=== PATIENT | male | born 1960 | race Caucasian/White ===

== ENCOUNTER → 2021-06-24 02:06 | Outpatient (CLI) | payer BC, SELFPAY ==
[2021-06-24 19:34] LABS: SARS-CoV-2 RNA PCR Negative
== END ==
PROVIDERS: Visit Provider Podiatrist Foot & Ankle Surgery
DX: Z01.812 Encounter for preprocedural laboratory examination (principal); Z20.822 Contact with and (suspected) exposure to COVID-19
CPT/HCPCS: C9803; U0003; U0005

== ENCOUNTER 2021-06-24 08:00 | Outpatient (CLI) | payer BC, SELFPAY ==
--- NOTE | 2021-06-24 08:15 | ECG_ITS ---
Measurements Intervals [place] Rate: 74 P: 40 MN: 187 QRS: -9 QRSD: 74 T: 29 QT: 347 QTc: 387 Interpretive Statements SINUS RHYTHM INCOMPLETE RIGHT BUNDLE BRANCH BLOCK BORDERLINE R WAVE PROGRESSION, ANTERIOR LEADS INFERIOR INFARCT, AGE INDETERMINATE BASELINE ARTIFACT- I, II, AVR ABNORMAL ECG Electronically Signed On 06-24-2021 8:18:58 [employer]PORATE [employer] PREPAR[employer] by Jesus Dupont D.O.
== END 2021-06-24 08:01 | disposition home or self-care (01) ==
LOC: ANHSURGERY 08:05
PROVIDERS: PCP Family Medicine; Visit Provider Podiatrist Foot & Ankle Surgery
DX: I10 Essential (primary) hypertension (principal); Z01.818 Encounter for other preprocedural examination; I45.10 Unspecified right bundle-branch block
CPT/HCPCS: 93005

== ENCOUNTER 2021-06-27 01:54 | Day surgery (SDC) | payer BC, SELFPAY ==
[2021-06-23 12:57] VITALS: BMI 27.1
--- NOTE | 2021-06-23 13:06 | PC.NURSE ---
Report to the Outpatient Waiting Room, entrance under the green pavilion located off [facility], at time __8:30AM on date __06/27/21 . OR Time: __10:30AM . - You and your visitor will be asked a series of questions to screen for COVID 19 for your protection. - A mask is required within the hospital. - Only one visitor is allowed at this time. Patient visitors will be guided where to wait when not with patient. Preoperative COVID Testing Requirements: No COVID Test needed if: (proof is required; if not received patient will have Rapid Test prior to entry) - Patient has received COVID Vaccine at least 14 days prior to procedure date or - Patient has positive COVID test result within last 90 days of surgery date. COVID Test needed if above criteria is not met If not COVID vaccinated a COVID test must be conducted within 72 hours of surgery and patient is asked to isolate self from time of testing until procedure. You will go to the [facility] Testing Site for your COVID testing. The [facility] Testing site is located at the corner of [address] [facility]. COVID TESTING 06/24/21, 7:35AM You will only be called if COVID results are positive and your surgeon may reschedule your elective surgery date. Patients may have clear liquids (water, carbonated beverages, clear teas, apple juice) until 3 hours prior to surgery with a maximum of 20 ounces. - No food from midnight until time of surgery 7:30AM - Infants may have breast milk until 4 hours before surgery, infant formula 6 hours prior to surgery. - Children will be allowed to drink immediately following surgery. If applicable, please bring a bottle or sippy cup to assist with drinking. Juice, water, soda, and popsicles are readily available. For infants on formula, please bring formula the day of surgery. Pacifiers are allowed. Take the following medications with a SIP of water the morning of surgery: NONE Medications to discontinue per physician NONE Date to take last dose Please no make-up, nail french, hairspray, perfume, deodorant, or body powder the day of surgery. No jewelry (including any body piercings) or valuables the day of surgery, leave them at home. Please take a shower or bath the night before, or the morning of, surgery with an antibacterial soap. Wear comfortable, loose fitting clothing. Children are encouraged to wear pajamas. - Jewelry must be removed prior to entering the operating room. Rings and piercings that are not removed may be cut off. - The hospital will not accept responsibility for valuables. - Please leave all valuables, including medications, at home the day of surgery. If you are going home after surgery, a licensed garbage collector driver must drive you home. - NO public transportation without another adult. - We recommend that an adult stay with you for 24 hours following discharge. - We also recommend that you do not drive, make important decision, drink alcoholic beverages, or take any drugs that were not prescribed by your health care provider for at least 24 hours after your discharge time. For Pediatric surgeries, we recommend two adults accompany the child home (only one inside the building at this time). Follow any additional instructions given to you from your surgeon. Telephone instructions given to ___PATIENT'S WIFE and asked if any additional questions and then verbalized understanding. Patient advised to call surgeon office or pre surgery nurse liaison [phone] if any additional questions.
--- NOTE | 2021-06-26 14:44 | WPDANESEPPF ---
Anes - Initial Pre Proc Eval Procedure: Operation Date: 06/27/21 10:30 Proposed Procedures p Arthrodesis of First Metatarsalphalangeal Joint Right Foot, Stabilization of First Ray Right Foot, Sally Second Metatarsal Osteotomy Right Foot - Zbigniew Kumar JR, MD s Hammertoe Repair Second Digit Right Foot - Zbigniew Kumar JR, MD Date/Time: 06/26/21 14:44 Surgeon: Zbigniew Kumar JR, MD Pre Op Diagnosis: Bunion Rt Foot, 1st Ray Instability Right Patient Data Age: 61 Gender: M Height: 1.83 m Weight: 91 kg Allergies Allergy/AdvReac Type Severity Reaction Status Date / Time No Known Allergies Allergy Verified 06/23/21 12:54 Home Medications Medication Instructions Recorded Confirmed Type lisinopril 20 mg PO QAM 06/23/21 06/27/21 History Patient hx anesthesia problems: none Family hx anesthesia problems: none Results Review: All pre-operative results and documents have been reviewed as part of the pre-operative evaluation. [facility] Past Medical History Medical History (Updated 06/26/21 @ 14:45 by Nicolás Hayden MD) HTN (hypertension) Overweight (BMI 25.0-29.9) Social History Social History Smoking status: Never smoker Alcohol intake: current Drinks per week: 1 Substance use: never Living arrangements: with family Additional living arrangements comments: Spiritual care concerns: No Anes - Eval Final PreProcedure Day of Procedure 06/26/21 14:44 Patient weight: overweight Heart: regular rate and rhythm Lungs: clear to auscultation and normal air movement Airway: Mallampati scale class II Neurological: alert and oriented Last oral intake: >/= 8 hours ASA classification: II Emergent: no Anesthetic plan: proceed Anesthesia type and monitoring: general GIVS and LMA Results Review: All pre-operative results and documents have been reviewed as part of the pre-operative evaluation. Informed Consent: The patient's anesthetic plan and its attendant risks and benefits were discussed with the patient/family/POA. Questions were solicited and answers provided to the satisfaction of the patient/family/POA.
[2021-06-27] VITALS (13 sets, daily range): BP systolic 103–145; BP diastolic 55–78; PULSE 71–88; RESP 10–20; TEMP 36.3; O2SAT 92–99
--- NOTE | ~2021-06-27 | XR_ITS ---
EXAMINATION: XR surgery orthopedic EXAM DATE: 06/27/2021 12:19 INDICATION: Arthrodesis. Right foot surgery. TECHNIQUE: Fluoroscopy used during right 1st, 2nd digit arthrodesis performed by Dr. Zbigniew ortiz JR MD. Radiologist was not present for the imaging or procedure. Total fluoroscopic time of 24 s econds. The DAP for this procedure was 2.3 cGycm2. A total of 4 images sent to PACS from the exam. There is no prior study for comparison. FINDINGS: Frontal and lateral projections demonstrate orthopedic hardware in the 1st and 2nd digits, bridging the 1st metatarsophalangeal and 1st/2nd metatarsal bases. Fixation device extending down th e length of the 2nd digit to the metatarsal neck. Correlate with procedure note. IMPRESSION: Fluoroscopy used during right 1st, 2nd digit arthrodesis. Reviewed, dictated and finalized at location B. E FIGHTER
--- NOTE | 2021-06-27 07:20 | WPDHPUPDATE1 ---
History and Physical Update Update Date/Time: 06/27/21 07:20 History and Physical has been reviewed, including an updated exam of the patient. There are NO changes in the patient's condition. Risks, benefits, and alternatives have been discussed and questions answered. Patient agrees to proceed with procedure.
[2021-06-27] MEDS: LACTATED RINGERS 1,000 ML 30 ML IV CONT ×2 (09:30→14:00)
[2021-06-27] MEDS: ceFAZolin 2 GM/D5W 50 ML 2 GM/50 ML BAG IVPB (10:29)
[2021-06-27] MEDS: LIDOCAINE HCL 2% PF INJ 5 ML VIAL 10 ML INFILTRATE (10:57)
[2021-06-27] MEDS: fentaNYL CITRATE INJ (*CRX) 100 MCG/2 ML VIAL 25 MCG IV PUSH ×8 (12:54→13:57)
--- NOTE | 2021-06-27 13:28 | W.PM.PROC2 ---
Procedure Note - Detailed Date of Procedure 06/27/21 Pre-op Diagnosis 1. Recurrent bunion deformity right foot 2. First ray instability right foot 3. Metatarsalgia sub second metatarsal head right foot 4. Hammertoe 2nd digit right foot Post-op Diagnosis same Procedure Performed 1. Arthrodesis of the first metatarsal phalangeal joint right foot 2. Stabilization of the first ray right foot with internal fixation 3. Sally shortening second metatarsal osteotomy right foot 4. Hammertoe repair 2nd digit right foot Surgeon Zbigniew Kumar JR, HO[place] Anesthesia general and local Indications Painful right forefoot Description of Procedure PROCEDURE IN DETAIL: Under mild sedation, the patient was brought into the operating room, placed on the operating table in supine position. A pneumatic ankle tourniquet was placed about the patient's ipsilateral ankle. Following general LMA, a local anesthetic block was obtained about the right foot and ankle utilizing 20 cc of 2% Lidocaine plain and 0.5% Marcaine plain. The foot was then scrubbed, prepped, and draped in the usual aseptic manner. An Esmarch bandage was then used to exsanguinate the patient's foot and the pneumatic ankle tourniquet was then inflated. Surgery began in the following manner: Attention was directed to the dorsal aspect of the 1st metatarsophalangeal joint where there was a large osseous medial eminence noted along the dorsomedial aspect of the joint. The incision was made starting along the central shaft of the 1st metatarsal and extending just proximal to the interphalangeal joint of the hallux. The incision was continued deep down through the subcutaneous tissues using sharp and blunt dissection. All bleeders were cauterized as necessary. At this point, the dissection was continued down to the level of the periosteum and capsular structures overlying the 1st metatarsophalangeal joint. A full length periosteum and capsular incision was made just medial to the extensor hallucis longus tendon. The periosteum and capsular structures were freed from the base of the proximal phalanx as well as the distal 1st metatarsal. At this point, the 1st metatarsophalangeal joint was identified. There was partial loss of articular cartilage to the head of the 1st metatarsal as well as the base of the proximal phalanx. There was significant broadening and hypertrophy of the 1st metatarsophalangeal joint. Utilizing a sagittal bone saw, the hypertrophied 1st metatarsal was resected dorsally, medially, and laterally. A power bur was used to make sure that there were no rough edges and also to further debride the hypertrophic 1st metatarsal. Next, a rongeur was used to resect all hypertrophic base of the proximal phalanx. At this point, the reamer system for the Opsmatic system was used to denude the degenerative cartilage from the head of the 1st metatarsal as well as the base of the proximal phalanx. The cartilage and subchondral bone were fully debrided utilizing the reamer system until healthy bleeding bone was noted. Next, a 2-0 drill bit was used to further fenestrate the head of the 1st metatarsal as well as the base of the proximal phalanx in order to allow fusion across the 1st metatarsophalangeal joint. Next, a 0.045 inch K-wire was driven from the medial aspect of the base of the proximal phalanx into the head of the 1st metatarsal in order to serve as temporary fixation. A large steel plate was used to make sure that the hallux was in a rectus position both in the sagittal plane as well as the frontal and transverse plane. Excellent position of the hallux was noted. Next, a CrossCHECK plate was placed atop the 1st metatarsophalangeal joint held in position with Delmont wires. Utilizing standard principles and techniques, the 2 distal drill holes were drilled and two 3.5 mm mm fully-threaded locking screws were driven from dorsal to plantar holding the distal aspect of the
[2021-06-27] MEDS: HYDROmorphone HCL INJ (*CRX) 1 MG/ML SYR 0.25 MG IV PUSH ×6 (14:00→14:49)
[2021-06-27] MEDS: oxyCODONE HCL (*CRX) 5 MG TAB IR PO (15:25)
== END 2021-06-27 16:14 | disposition home or self-care (01) ==
PROVIDERS: PCP Family Medicine; Visit Provider Podiatrist Foot & Ankle Surgery
PROC: (CPT 28750; principal; 2021-06-27 10:30)
PROC: (CPT 28285; 2021-06-27 10:30)
DX: M21.611 Bunion of right foot (principal); M25.374 Other instability, right foot; M77.41 Metatarsalgia, right foot; M20.41 Other hammer toe(s) (acquired), right foot; I10 Essential (primary) hypertension
CPT/HCPCS: 28285; 28308; 28750; 28615; A9270; C1713; C1776; J0690; J1100; J1170; J1885; J2250; J2405; J2704; J3010; J7120

== ENCOUNTER 2021-08-05 14:46 | Outpatient (CLI) | payer BC, SELFPAY ==
--- NOTE | ~2021-08-05 | XR_ITS ---
EXAMINATION: XR wrist LT min 3V DATE: 08/05/2021 15:12 INDICATION: Osteoarthritis TECHNIQUE: Posteroanterior, ulnar deviation, oblique, and lateral views of the left wrist were obtain ed. COMPARISON: none FINDINGS: Alignment is normal. No fracture. Mild chondrocalcinosis in the region of the triangular fibrocartila ge complex. Severe osteoarthritis at the radioscaphoid articulation of the wrist joint. Mild osteoart hritis at the midcarpal, triscaphe and first carpal metacarpal joints. Tiny metallic foreign body in the soft tissues near the skin surface dorsal to the base of the second metacarpal. IMPRESSION: 1. 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 Reviewed, dictated and finalized at location A. HIATRIC TECHNICIAN ASSISTANT IMPRESSION: 1. 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
== END 2021-08-05 14:47 | disposition home or self-care (01) ==
PROVIDERS: Visit Provider Plastic Surgery
DX: M19.031 Primary osteoarthritis, right wrist (principal)
CPT/HCPCS: 73110

== ENCOUNTER → 2021-09-15 00:45 | Outpatient (CLI) | payer BC, SELFPAY ==
[2021-09-15 12:50] LABS: SARS-CoV-2 RNA PCR Negative
== END ==
PROVIDERS: Visit Provider Plastic Surgery
DX: Z01.812 Encounter for preprocedural laboratory examination (principal); Z20.822 Contact with and (suspected) exposure to COVID-19
CPT/HCPCS: C9803; U0003; U0005

== ENCOUNTER 2021-09-18 00:03 | Day surgery (SDC) | payer BC, SELFPAY ==
[2021-09-15 14:12] VITALS: BMI 26.9
--- NOTE | 2021-09-15 14:18 | PC.NURSE ---
Report to the Outpatient Waiting Room, entrance under the green pavilion located off [facility], at time __0600 ____ on date __09/18/21 . OR Time: . - You will be asked a series of questions to screen for COVID 19 for your protection. - A mask is required within the hospital. - No visitors are allowed at this time. Preoperative COVID Testing Requirements: No COVID Test needed if: (proof is required; if not received patient will have Rapid Test prior to entry) - Patient has received COVID Vaccine at least 14 days prior to procedure date or - Patient has positive COVID test result within last 90 days of surgery date. COVID Test needed if above criteria is not met If not COVID vaccinated a COVID test must be conducted within 72 hours of surgery and patient is asked to isolate self from time of testing until procedure. You will go to the [facility] Testing [facility] for your COVID testing. The [facility] is located at the corner of [address] from [facility]. You will only be called if COVID results are positive and your surgeon may reschedule your elective surgery date. Patients may have clear liquids (water, carbonated beverages, clear teas, apple juice) until 3 hours prior to surgery with a maximum of 20 ounces. - No food from midnight until time of surgery - Infants may have breast milk until 4 hours before surgery, infant formula 6 hours prior to surgery. - Children will be allowed to drink immediately following surgery. If applicable, please bring a bottle or sippy cup to assist with drinking. Juice, water, soda, and popsicles are readily available. For infants on formula, please bring formula the day of surgery. Pacifiers are allowed. Take the following medications with a SIP of water the morning of surgery: __NONE Medications to discontinue per physician NONE Date to take last dose NONE Please no make-up, nail luxembourgish, hairspray, perfume, deodorant, or body powder the day of surgery. No jewelry (including any body piercings) or valuables the day of surgery, leave them at home. Please take a shower or bath the night before, or the morning of, surgery with an antibacterial soap. Wear comfortable, loose fitting clothing. Children are encouraged to wear pajamas. - Jewelry must be removed prior to entering the operating room. Rings and piercings that are not removed may be cut off. - The hospital will not accept responsibility for valuables. - Please leave all valuables, including medications, at home the day of surgery. If you are going home after surgery, a licensed local company truck driver must drive you home. - NO public transportation without another adult. - We recommend that an adult stay with you for 24 hours following discharge. - We also recommend that you do not drive, make important decision, drink alcoholic beverages, or take any drugs that were not prescribed by your health care provider for at least 24 hours after your discharge time. For Pediatric surgeries, we recommend two adults accompany the child home (only one inside the building at this time). Follow any additional instructions given to you from your surgeon. Telephone instructions given to ___WIFE and asked if any additional questions and then verbalized understanding. Patient advised to call surgeon office or pre surgery nurse liaison [phone] if any additional questions.
[2021-09-18 06:25] VITALS: BP 124/83; PULSE 77; RESP 18; TEMP 36.6; O2SAT 100; BMI 26.4
[2021-09-18] MEDS: LACTATED RINGERS 1,000 ML 30 ML IV CONT (06:37)
--- NOTE | 2021-09-18 06:44 | WPDANESEPPF ---
Anes - Initial Pre Proc Eval Procedure: Operation Date: 09/18/21 07:30 Proposed Procedures p Right Ulnar Nerve Neuroplasty at the Elbow - Jose Denis MD Date/Time: 09/18/21 06:44 Surgeon: Jose Denis MD Pre Op Diagnosis: Right Cubital Tunnel Syndrome Patient Data Age: 61 Gender: M Height: 1.83 m Weight: 88.5 kg Last Vital Signs Temp 36.6 C 09/18/21 06:25 Pulse 77 09/18/21 06:25 Resp 18 09/18/21 06:25 BP 124/83 09/18/21 06:25 Pulse Ox 100 09/18/21 06:25 Allergies Allergy/AdvReac Type Severity Reaction Status Date / Time No Known Allergies Allergy Verified 09/18/21 06:11 Home Medications Medication Instructions Recorded Confirmed Type lisinopril 20 mg PO QAM 06/23/21 09/18/21 History diclofenac sodium 75 mg PO BID 09/15/21 09/18/21 History Patient hx anesthesia problems: none Family hx anesthesia problems: none Results Review: All pre-operative results and documents have been reviewed as part of the pre-operative evaluation. [facility] Past Medical History Medical History (Updated 06/26/21 @ 14:45 by Nicolás Hayden MD) HTN (hypertension) Overweight (BMI 25.0-29.9) Social History Social History Smoking status: Never smoker Alcohol intake: current Drinks per week: 1 Substance use: never Living arrangements: with family Additional living arrangements comments: Spiritual care concerns: No Anes - Eval Final PreProcedure Day of Procedure 09/18/21 06:44 Patient weight: overweight Heart: regular rate and rhythm Lungs: clear to auscultation and normal air movement Airway: Mallampati scale class II Neurological: alert and oriented Last oral intake: >/= 8 hours ASA classification: II Emergent: no Anesthetic plan: proceed Anesthesia type and monitoring: general GIVS and standard monitoring Results Review: All pre-operative results and documents have been reviewed as part of the pre-operative evaluation. Informed Consent: The patient's anesthetic plan and its attendant risks and benefits were discussed with the patient/family/POA. Questions were solicited and answers provided to the satisfaction of the patient/family/POA.
--- NOTE | 2021-09-18 07:09 | WPDHPUPDATE1 ---
History and Physical Update Update Date/Time: 09/18/21 07:09 History and Physical has been reviewed, including an updated exam of the patient. There are NO changes in the patient's condition. Risks, benefits, and alternatives have been discussed and questions answered. Patient agrees to proceed with procedure.
[2021-09-18] MEDS: BACITRACIN ZINC OINTMENT 0.9 GRAM PACKET 1 PACKET TOPICAL (07:47)
[2021-09-18 08:11] VITALS: BP 94/65; PULSE 79; RESP 16; O2SAT 96
--- NOTE | 2021-09-18 08:17 | P.OP_ITS ---
Procedure Note - Detailed Date of Procedure 09/18/21 Pre-op Diagnosis Right Cubital Tunnel Syndrome Post-op Diagnosis same Procedure Performed Right ulnar neuroplasty at the elbow Surgeon Jose Denis MD Manager Of Sales [place] [facility] Description of Procedure The area of the cubital tunnel was marked on patient in the holding area he agreed to that. He was taken to the operating room placed supine on the operating table. Time-out was held and confirmed. He was given IV sedation and eventually and LMA was placed. The right upper extremity was prepped and draped in usual fashion. The site was remarked and locally infiltrated with 1% lidocaine with epinephrine. The extremity was exsanguinated with an Lane wrap and the tourniquet inflated to 250 mmHg. The elbow was flexed and supported on folded towels. The incision was made as marked and carried through the subcutaneous tissue to the deep fascia. The ulnar nerve was identified proximally and carefully unroofed exposing it. Proximally there was no constrictive bands. More distally the overlying fascial structures were incised throughout the length of the exposed nerve including the area of Galeano's ligament. A lipoma was identified lying over the nerve and contained with in some deep fascia. It is possible that contributed to some of the compression on this nerve. Most of that tissue was removed. It was approximately 1.5 x 5 mm x 5 mm. The lysis was continued beyond the fascia of the ulnar flexors. The nerve remained well seated in its groove. There was no subluxation. Few bleeding points were electrocoagulated. The wound was closed with intradermal 3-0 Monocryl and cross hatching massey. The skin was then closed with a running intradermal 3-0 Monocryl. The usual bulky bandage with Lane wrap was applied the patient is discharged from the operating room stable condition. He be discharged with instructions in care follow-up and a prescription sent to his pharmacy for hydrocodone 7. Estimated Blood Loss 0 Drains No Packing No Pathology none sent Complications No immediate complications Condition stable Disposition same day
[2021-09-18 08:41] VITALS: BP 106/71; PULSE 71; RESP 16; O2SAT 97
[2021-09-18 09:11] VITALS: BP 107/73; PULSE 60; RESP 16; O2SAT 100
[2021-09-18 09:20] VITALS: BP 109/72; PULSE 62; RESP 16; O2SAT 100
== END 2021-09-18 09:30 | disposition home or self-care (01) ==
PROVIDERS: Visit Provider Plastic Surgery
PROC: (CPT 64718; principal; 2021-09-18 07:30)
DX: G56.21 Lesion of ulnar nerve, right upper limb (principal); D17.22 Benign lipomatous neoplasm of skin and subcutaneous tissue of left arm
CPT/HCPCS: 64718; A9270; J2250; J2704; J7120

== ENCOUNTER → 2021-10-20 00:37 | Outpatient (CLI) | payer BC, SELFPAY ==
[2021-10-20 11:18] LABS: SARS-CoV-2 RNA PCR Negative
== END ==
PROVIDERS: Visit Provider Plastic Surgery
DX: Z01.812 Encounter for preprocedural laboratory examination (principal); Z20.822 Contact with and (suspected) exposure to COVID-19
CPT/HCPCS: C9803; U0003; U0005

== ENCOUNTER 2021-10-23 02:19 | Day surgery (SDC) | payer BC, SELFPAY ==
[2021-10-20 08:39] VITALS: BMI 26.4
--- NOTE | 2021-10-20 08:44 | PC.NURSE ---
Report to the Outpatient Waiting Room, entrance under the green pavilion located off [facility], at time 0730 on date 10/23/21. OR Time: 0930. - You and your visitor will be asked a series of questions to screen for COVID 19 for your protection. - A mask is required within the hospital. One visitor will be allowed to accompany the patient into the hospital. Patients visitor will be instructed to remain with patient at all times or leave the building. We will allow the visitor to come back to the postoperative area when patient is ready. Preoperative COVID Testing Requirements: COVID TEST 10/20 AT 0900 No COVID Test needed if: (proof is required; if not received patient will have Rapid Test prior to entry) - Patient has received COVID Vaccine at least 14 days prior to procedure date or - Patient has positive COVID test result within last 90 days of surgery date. COVID Test needed if above criteria is not met If not COVID vaccinated a COVID test must be conducted within 72 hours of surgery and patient is asked to isolate self from time of testing until procedure. You will go to the [facility] for your COVID testing. The [facility] Testing site is located at the corner of [address] from [facility]. You will only be called if COVID results are positive and your surgeon may reschedule your elective surgery date. Patients may have clear liquids (water, carbonated beverages, clear teas, apple juice) until 3 hours prior to surgery with a maximum of 20 ounces. - No food from midnight until time of surgery Take the following medications with a SIP of water the morning of surgery: NONE Medications to discontinue per physician: N/A Date to take last dose: N/A Please no make-up, nail bulgarian, hairspray, perfume, deodorant, or body powder the day of surgery. No jewelry (including any body piercings) or valuables the day of surgery, leave them at home. Please take a shower or bath the night before, or the morning of, surgery with an antibacterial soap. Wear comfortable, loose fitting clothing. - Jewelry must be removed prior to entering the operating room. Rings and piercings that are not removed may be cut off. - The hospital will not accept responsibility for valuables. - Please leave all valuables, including medications, at home the day of surgery. If you are going home after surgery, a licensed driver's license reviewing officer must drive you home. - NO public transportation without another adult. - We recommend that an adult stay with you for 24 hours following discharge. - We also recommend that you do not drive, make important decision, drink alcoholic beverages, or take any drugs that were not prescribed by your health care provider for at least 24 hours after your discharge time. Follow any additional instructions given to you from your surgeon. Telephone instructions given to PT AND SPOUSE and asked if any additional questions and then verbalized understanding. Patient advised to call surgeon office or pre surgery nurse liaison [phone] if any additional questions.
--- NOTE | 2021-10-22 10:19 | P.PNAN_ITS ---
Anes - Initial Pre Proc Eval Procedure: Operation Date: 10/23/21 09:30 Proposed Procedures p Left Ulnar Neuroplasty of the Elbow - Jose Denis MD Date/Time: 10/22/21 10:19 Surgeon: Jose Denis MD Pre Op Diagnosis: left cubital tunnel syndrome Patient Data Age: 61 Gender: M Height: 1.83 m Weight: 88.5 kg Allergies Allergy/AdvReac Type Severity Reaction Status Date / Time No Known Allergies Allergy Verified 10/20/21 08:32 Home Medications Medication Instructions Recorded Confirmed Type lisinopril 20 mg PO QAM 06/23/21 10/20/21 History Patient hx anesthesia problems: none Family hx anesthesia problems: none Results Review: All pre-operative results and documents have been reviewed as part of the pre-operative evaluation. [facility] Past Medical History Medical History (Updated 06/26/21 @ 14:45 by Nicolás Hayden MD) HTN (hypertension) Overweight (BMI 25.0-29.9) Surgical History Surgical History (Updated 10/22/21 @ 10:20 by Case Castellano DO) S/P lumbar fusion Social History Social History Smoking status: Never smoker Alcohol intake: current Drinks per week: 1 Substance use: never Substance use type: does not use Living arrangements: with family Additional living arrangements comments: Spiritual care concerns: No Anes - Eval Final PreProcedure Day of Procedure 10/22/21 10:19 Patient weight: overweight Heart: regular rate and rhythm Lungs: clear to auscultation and normal air movement Airway: Mallampati scale class II Neurological: alert and oriented Last oral intake: >/= 8 hours ASA classification: II Emergent: no Anesthetic plan: proceed Anesthesia type and monitoring: general GIVS and standard monitoring Results Review: All pre-operative results and documents have been reviewed as part of the pre-operative evaluation. Informed Consent: The patient's anesthetic plan and its attendant risks and benefits were discussed with the patient/family/POA. Questions were solicited and answers provided to the satisfaction of the patient/family/POA.
--- NOTE | 2021-10-23 07:21 | WPDHPUPDATE1 ---
History and Physical Update Update Date/Time: 10/23/21 07:21 History and Physical has been reviewed, including an updated exam of the patient. There are NO changes in the patient's condition. Risks, benefits, and alternatives have been discussed and questions answered. Patient agrees to proceed with procedure.
[2021-10-23 08:00] VITALS: BP 127/89; PULSE 74; RESP 18; TEMP 36.5; O2SAT 100
[2021-10-23] MEDS: LACTATED RINGERS 1,000 ML 30 ML IV CONT ×2 (08:15→09:55)
[2021-10-23 09:55] VITALS: BP 93/52; PULSE 63; RESP 14; O2SAT 97
--- NOTE | 2021-10-23 10:12 | P.OP_ITS ---
Procedure Note - Detailed Date of Procedure 10/23/21 Pre-op Diagnosis left cubital tunnel syndrome Post-op Diagnosis Same Procedure Performed Left ulnar neuroplasty at the elbow Surgeon Jose Denis MD Computational Sciences Professor Anne Description of Procedure The skin over the left cubital tunnel was marked on the patient's arm in the holding area. He she was then taken to the operating room where he was placed supine on the operating table. A time-out was held and confirmed. The patient was given IV sedation and the left upper extremity prepped and draped in usual fashion the the site was remarked for the incision and locally infiltrated with 1% lidocaine with epinephrine. The extremity was exsanguinated the tourniquet inflated 250 mmHg. The elbow was flexed and supported on folded towels. The incision was made as marked and dissection was carried through the subcutaneous tissue to the deep fascia. The ulnar nerve was identified proximal to the medial epicondyle. It was relieved of its fascia in that region and explore proximally where there were no signs of compression or constriction. Distally the deeper thick fascia was divided with scissors past Galeano ligament. There was thick robust triceps muscle Harsh posterior to the course of the nerve that did not seem to impede function. The flexor carpi ulnaris fascia was incised a couple of cm. The nerve did not sublux. Bleeding points were electrocoagulated and the wound was closed with intradermal 3-0 Monocryl at multiple sites and the skin closed with glue. A dry gauze bandage was applied released and is discharged from the operating room in stable condition. He has a prescription for hydrocodone 5/325 number 7 Estimated Blood Loss 2 Tourniquet Time 18 Drains No Packing No Pathology None sent Complications No immediate complications Condition Stable Disposition Same day
[2021-10-23 10:20] VITALS: BP 109/67; PULSE 64; RESP 14
[2021-10-23 10:45] VITALS: BP 114/79; PULSE 58; RESP 14
== END 2021-10-23 11:02 | disposition home or self-care (01) ==
PROVIDERS: Visit Provider Plastic Surgery
PROC: (CPT 64718; principal; 2021-10-23 09:30)
DX: G56.22 Lesion of ulnar nerve, left upper limb (principal); I10 Essential (primary) hypertension; Z98.1 Arthrodesis status
CPT/HCPCS: 64718; A9270; J2250; J2704; J3010; J7120

== ENCOUNTER 2021-11-12 14:18 | Outpatient (CLI) | payer BC, SELFPAY ==
--- NOTE | ~2021-11-12 | XR_ITS ---
EXAM: XR hand RT min 3V HISTORY: OA,pain/swelling posterior hand, 2-4 MCP jointsX2 yrs.no inj COMPARISON: None available FINDINGS: Normal mineralization. Joint space narrowing and osteophytosis, moderate at the third MCP and mild at the first and second MCP joints. Remaining joint spaces are maintained. No fracture or di slocation. No abnormal soft tissue calcifications. 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 Reviewed, dictated and finalized at location K.
== END 2021-11-12 14:19 | disposition home or self-care (01) ==
LOC: ANHIMG 14:23
PROVIDERS: Visit Provider Plastic Surgery
DX: M19.041 Primary osteoarthritis, right hand (principal); M18.11 Unilateral primary osteoarthritis of first carpometacarpal joint, right hand
CPT/HCPCS: 73130

== ENCOUNTER 2021-11-18 09:44 | Outpatient (CLI) | payer BC, SELFPAY ==
--- NOTE | ~2021-11-18 | XR_ITS ---
EXAMINATION: XR md joint inject/asp w image DATE: 11/18/2021 10:45 INDICATION: Left wrist osteoarthritis. TECHNIQUE: A time-out was performed to verify the patient's name, date of , and procedure to b e performed. The procedure including the risks, benefits, and alternatives was discussed with the pat ient. Risks discussed included bleeding and infection. The patient understood the risks and agreed to proceed. The skin overlying the left radioscaphoid joint was prepped and draped in usual sterile fa shion. Anesthetic was administered with 1% lidocaine subcutaneously. A 23 G needle was advanced und er fluoroscopic guidance into the joint. Subsequently, injectate consisting of 1 mL 6 mg/mL betameth asone, 0.5 mL 1% lidocaine, and 0.5 mL Omnipaque 240 was instilled. The needle was removed and the e ntry site was cleaned and dressed. There were no immediate complications. Fluoroscopy exposure time was 0.1 minutes. The total number of images was 2. FINDINGS: Real-time fluoroscopy demonstrates the needle in the left radioscaphoid joint. Patient's pa in prior to procedure:5/10. Patient's pain following the procedure: 0/10. IMPRESSION: 1. Fluoroscopy guided left radioscaphoid joint injection of local anesthetic and steroid with decreas e in the patient's presenting pain. Reviewed, dictated and finalized at location A. IMPRESSION: 1. Fluoroscopy guided left radioscaphoid joint injection of local anesthetic an d steroid with decrease in the patient's presenting pain.
== END 2021-11-18 09:45 | disposition home or self-care (01) ==
PROVIDERS: Visit Provider Plastic Surgery
DX: M25.542 Pain in joints of left hand (principal)
CPT/HCPCS: 20605; 77002; J0702; Q9966

== ENCOUNTER 2023-03-10 16:37 | Outpatient (CLI) | payer BC, SELFPAY ==
--- NOTE | ~2023-03-10 | XR_ITS ---
EXAM: XR wrist LT min 3V DATE: 03/10/2023 16:57 HISTORY: RADIOSCAPHOID OSTEOARTHRITIS W PAIN w/o injury . COMPARISON: 08/05/2021. FINDINGS: Normal mineralization. No fracture or dislocation. No lytic or blastic lesion. Scapholunat e widening. Chondrocalcinosis. Degenerative changes at the triscaphe joint and radiocarpal joint. Pro ximal migration of the capitate with narrowing of the capitate lunate articulation. No erosion or per iosteal change. Soft tissues within normal limits. Stable punctate foreign body at the base of the se cond metacarpal. IMPRESSION: Degenerative changes in the wrist, severe at the radiocarpal articulation, with chondroca lcinosis. Possible early changes of SLAC wrist. Reviewed, dictated and finalized at location K. IMPRESSION: Degenerative changes in the wrist, severe at the radiocarpal articu lation, with chondrocalcinosis. Possible early changes of SLAC wrist.
== END 2023-03-10 16:38 | disposition home or self-care (01) ==
LOC: ANHIMG 16:42
PROVIDERS: Visit Provider Plastic Surgery
DX: M19.032 Primary osteoarthritis, left wrist (principal); M11.232 Other chondrocalcinosis, left wrist
CPT/HCPCS: 73110

== ENCOUNTER 2023-06-20 12:36 | Outpatient (CLI) | payer BC, SELFPAY ==
--- NOTE | ~2023-06-20 | XR_ITS ---
EXAMINATION: 1. XR hand LT min 3V 2. XR wrist LT min 3V DATE: 06/20/2023 13:28 INDICATION: Arthralgia. TECHNIQUE: 3 views of left hand and 4 views of left wrist were obtained. COMPARISON: Left wrist radiograph 01/08/2023 FINDINGS: LEFT WRIST: Bone alignment is normal. No fracture. There is severe osteoarthritis of radioscaphoid xiang int with bone volume loss of scaphoid. There is moderate osteoarthritis of lunate-capitate joint. The re is mild osteoarthritis of triscaphe joint and first carpometacarpal joint. LEFT HAND: Bone alignment is normal. No fracture. There is mild osteoarthritis of second and third me tacarpophalangeal joints, first interphalangeal joint, third and fifth proximal interphalangeal joint s, and second distal interphalangeal joint. IMPRESSION: 1. Polyarticular osteoarthritis. Reviewed, dictated and finalized at location A. ATIONAL THERAPY TEACHER IMPRESSION: 1. Polyarticular osteoarthritis.
--- NOTE | ~2023-06-20 | XR_ITS ---
EXAMINATION: XR knee RT 3V DATE: 06/20/2023 13:28 INDICATION: Arthralgia. TECHNIQUE: 3 views of right knee were obtained. COMPARISON: None. FINDINGS: Bone alignment is normal. No fracture. There is mild osteoarthritis of medial and patellofe moral compartments. There is chondrocalcinosis of the menisci. No knee joint effusion. IMPRESSION: 1. Mild right knee osteoarthritis. Reviewed, dictated and finalized at location A. T METAL FOREMAN
--- NOTE | ~2023-06-20 | XR_ITS ---
EXAMINATION: 1. XR hand RT min 3V 2. XR wrist RT min 3V DATE: 06/20/2023 13:28 INDICATION: Arthralgia. TECHNIQUE: 3 views of right hand and 4 views of right breast were obtained. COMPARISON: Right hand radiographs 11/12/2021 FINDINGS: RIGHT WRIST: Bone alignment is normal. No fracture. There is mild osteoarthritis of first carpometaca rpal joint. RIGHT HAND: Bone alignment is normal. No fracture. There is mild osteoarthritis of first metacarpopha langeal joint and moderate osteoarthritis of second and third metacarpophalangeal joints. There is mi ld osteoarthritis of first interphalangeal joint, third and fifth proximal interphalangeal joints, an d second and third distal interphalangeal joints. IMPRESSION: 1. Polyarticular osteoarthritis. Reviewed, dictated and finalized at location A. MACY TECHNOLOGY INSTRUCTOR IMPRESSION: 1. Polyarticular osteoarthritis.
--- NOTE | ~2023-06-20 | XR_ITS ---
EXAMINATION: XR knee LT 3V DATE: 06/20/2023 13:28 INDICATION: Arthralgia. TECHNIQUE: 3 views of left knee were obtained. COMPARISON: None. FINDINGS: Bone alignment is normal. No fracture. There is mild osteoarthritis of medial and patellofe moral compartments. There is chondrocalcinosis of the menisci. No knee joint effusion. IMPRESSION: 1. Mild left knee osteoarthritis. Reviewed, dictated and finalized at location A. LAYER
--- NOTE | ~2023-06-20 | XR_ITS ---
EXAMINATION: XR sacroiliac joints min 3V DATE: 06/20/2023 13:27 INDICATION: Arthralgia. TECHNIQUE: 3 views of the sacrococcygeal joints were obtained. COMPARISON: None. FINDINGS: There is lumbar dextrocurvature. There are changes of posterior fusion procedure from L4 to S1 with pedicle screws. The sacroiliac joints are normal. There is mild osteoarthritis of the hips. IMPRESSION: 1. Normal sacroiliac joints. Reviewed, dictated and finalized at location A.
--- NOTE | ~2023-06-20 | XR_ITS ---
EXAMINATION: XR lumbar spine min 4V DATE: 06/20/2023 13:28 INDICATION: Arthralgia. TECHNIQUE: 5 views of lumbar spine were obtained. COMPARISON: None. FINDINGS: There is 5 degrees dextrocurvature of lumbar spine. There are changes of posterior fusion p rocedure from L4 to S1 with pedicle screws. There is mild chronic anterior wedging of T12 vertebral b edmond. There is mildly decreased disc height at L2-L3, moderately decreased disc height at L4-L5, and s everely decreased disc height at L5-S1. There is multilevel mild facet joint osteoarthritis. IMPRESSION: 1. Mild lumbar spondylosis. 2. Posterior fusion procedure from L4 to S1. Reviewed, dictated and finalized at location A. SH FLAKER
== END 2023-06-20 12:37 | disposition home or self-care (01) ==
LOC: ANHIMG 12:42
DX: M43.06 Spondylolysis, lumbar region (principal); M43.27 Fusion of spine, lumbosacral region; M19.032 Primary osteoarthritis, left wrist; M19.031 Primary osteoarthritis, right wrist; M17.0 Bilateral primary osteoarthritis of knee; M19.042 Primary osteoarthritis, left hand; M19.041 Primary osteoarthritis, right hand
CPT/HCPCS: 72110; 72202; 73110; 73130; 73562

== ENCOUNTER 2024-09-22 02:21 | Day surgery (SDC) | payer BC, SELFPAY ==
[2024-09-20 13:00] VITALS: BMI 28.5
--- NOTE | 2024-09-20 13:04 | PC.NURSE ---
Report to the Outpatient Waiting Room, entrance under the green pavilion located off [facility], at time _0600_ on date _[id number]_. Planned Procedure Time: _0730_.? Time changes happen often and if your time is changed the preop area will call you the afternoon before. - You and your visitor will be asked to self-screen and do not enter if you have any COVID symptoms. Please call surgeon if you need to reschedule. - A mask is optional within the hospital at this time. Patients may have clear liquids (water, carbonated beverages, clear teas, apple juice) until 3 hours prior to surgery with a maximum of 20 ounces. - No food from midnight until time of surgery and no smoking, or chewing tobacco (or any form of nicotine). No chewing gum, candy or mints. Take only the following medications with a SIP of water on the morning of surgery: ____None___ DO NOT STOP ANY OF YOUR OTHER PRESCRIPTION MEDICATIONS PRIOR TO SURGERY EXCEPT THE FOLLOWING Hold all vitamins and supplements for 3 days per anesthesiologist. Medications to discontinue per physician Date to take last dose Please no make-up, nail indonesian, hairspray, perfume, deodorant, or body powder the day of surgery.? No jewelry (including any body piercings) or valuables the day of surgery, leave them at home.? Please take a shower or bath the night before, or the morning of, surgery with an antibacterial soap.? Wear comfortable, loose fitting clothing.? - Jewelry must be removed prior to entering the operating room.? Rings and piercings that are not removed may be cut off. - The hospital will not accept responsibility for valuables.? - Please leave all valuables, including medications, at home the day of surgery. If you are going home after surgery, a licensed cdl truck driver must drive you home.? - NO public transportation without another adult if you receive anesthesia. - We recommend that an adult stay with you for 24 hours following discharge. - We also recommend that you do not drive, make important decision, drink alcoholic beverages, or take any drugs that were not prescribed by your health care provider for at least 24 hours after your discharge time. Follow any additional instructions given to you from your surgeon. Telephone instructions given to __Tawny___and asked if any additional questions and then verbalized understanding. Patient advised to call surgeon office or pre surgery nurse liaison [phone] if any additional questions.
[2024-09-22] VITALS (10 sets, daily range): BP systolic 121–151; BP diastolic 68–93; PULSE 63–80; RESP 12–16; TEMP 36.3–37.1; O2SAT 96–100
--- NOTE | ~2024-09-22 | XR_ITS ---
EXAMINATION: XR surgery orthopedic DATE: 09/22/2024 09:02 INDICATION: Left forefoot surgery TECHNIQUE: 2 images of the left forefoot were obtained during procedure performed by Dr. Kumar. Ra diologist was not present for the imaging or procedure. COMPARISON: None. FINDINGS: Images demonstrate the first metatarsal phalangeal arthrodesis with compression screw and dorsal plat e-screw fixation. Shortening osteotomy at the neck of the second metatarsal which is fixed with a queenie r of screws. Second proximal interphalangeal arthrodesis are probably with fixation device placed ove r maxillary directed wire which extends from the tuft of the distal phalanx to the fixation device at the base of the middle phalanx. Expected small amount of soft tissue gas at the operative beds. Ther e is some secondary widening of the second metatarsophalangeal joint space. Bone alignment appears ot herwise near-anatomic. No fractures. IMPRESSION: 1. Expected appearance post left first metatarsophalangeal and second proximal interphalangeal arthro desis and shortening osteotomy at the neck of the second metatarsal each with internal fixation. Reviewed, dictated and finalized at location A. [employer] IMPRESSION: 1. Expected appearance post left first metatarsophalangeal and second proximal interphalangeal arthrodesis and shortening osteotomy at the neck of the second metatarsal each with internal fixation.
--- OUTSIDE RECORDS SUMMARY | 2024-09-22 02:25 | XMS_ITS | Encounter Summary ---
Author Organization [facility] Address 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
--- OUTSIDE RECORDS SUMMARY | 2024-09-22 02:25 | XMS_ITS | Encounter Summary ---
Author Organization [facility] Address 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
--- OUTSIDE RECORDS SUMMARY | 2024-09-22 02:25 | XMS_ITS | Encounter Summary ---
Author Organization [facility] Address 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
--- OUTSIDE RECORDS SUMMARY | 2024-09-22 02:25 | XMS_ITS | Encounter Summary ---
Author Organization [facility] Address 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
--- OUTSIDE RECORDS SUMMARY | 2024-09-22 02:25 | XMS_ITS | Encounter Summary ---
Author Organization [facility] Address 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
--- OUTSIDE RECORDS SUMMARY | 2024-09-22 02:25 | XMS_ITS | Referral Summary ---
Author Organization [facility] Address [address] [place] [address] Care Team Providers Care Brass Pourer Name Role Phone Mag Kat NP Primary Care Provider [phone] Geovani Hollis MD Unavailable Lolis Yeh MD Unavailable Encounters Date Type Department Care Team Description 09/19/2024 Telephone [facility] Primary Care at [address] [address] Mag Kat NP 08/14/2024 10:00 AM ELECTRICIAN APPRENTICE Telemedicine [facility] [address] [place] [address] Medicine 5th [place] [address] [place] [id number] Lolis Yeh MD Calcium pyrophosphate deposition disease (CPPD) (Primary Dx); Wrist arthritis; High risk medication use from Last 3 Months Allergies No known active allergies Medications ibuprofen 200 mg tab/capIndicati ons:Pain Take 2 tablet/capsule (400 mg total) by mouth as needed for pain 2 tablets Active cyanocobalamin, vitamin B-12, (VITAMIN B-12 ORAL)Indication s:supplement Take 1 tablet by mouth every morning Active multivitamin tabletIndicatio ns:Vitamin Deficiency Prevention Take 1 tablet by mouth every morning Active albuterol HFA (PROVENTIL HFA,VENTOLIN HFA,PROAIR HFA) 90 mcg/actuation inhaler Inhale 2 puffs every 6 (six) hours as needed for shortness of breath 1 each 4 Active Additional Information Patient not taking.Reported on 02/16/2024 gabapentin (NEURONTIN) 100 mg capsule Take 1 capsule (100 mg total) by mouth 3 (three) times a day 90 capsule 1 4 Active losartan (COZAAR) 25 mg tablet TAKE 1 TABLET (25 MG TOTAL) BY MOUTH DAILY. 90 tablet 1 5 Active methotrexate 2.5 mg tabletIndicatio ns:autoimmune disease Take 4 tablets (10 mg total) by mouth once a week for 14 days, THEN 6 tablets (15 mg total) once a week for 14 days, THEN 8 tablets (20 mg total) once a week. 84 tablet 5 11/11/19 25 Active folic acid (FOLVITE) 1 mg tablet Take 1 tablet (1 mg total) by mouth daily 90 tablet 3 5 08/14/19 26 Active Active Problems Problem Noted Date Diagnosed Date Numbness and tingling of both legs 04/17/2024 Shortness of breath 01/26/2024 Assessment & Plan (02/16/2024 9:04 AM CDT): Stress test essentially unremarkable. SOB has slightly improved but pt has not tried prn inhaler. Discussed slight increase of BNP, will get ECHO to be safe given the CHF family hx and his SOB. Assessment & Plan (01/26/2024 10:31 AM CDT): EKG shows possible old anteroseptal infarct, no previous EKG to compare. With patient's symptoms will get stress test. Labs and CXR also ordered. Primary hypertension 07/20/2023 Assessment & Plan (02/16/2024 9:03 AM CDT): BP normal in office, renal function stable. Continuing Losartan 25 mg daily. Assessment & Plan (08/17/2023 2:48 PM ELECTRICIAN APPRENTICE): BP much improved, continuing Losartan 25 mg daily. Awaiting labs, he is getting drawn tomorrow via [facility]. Assessment & Plan (07/20/2023 4:45 PM ELECTRICIAN APPRENTICE): Has been out of medication x 3 months. Will restart with Losartan 25 mg daily. Home BP log. Renal function x 1 month ago stable. Wrist arthritis 04/19/2023 Hallux valgus of left foot 04/04/2019 Overview (04/04/2019): Added automatically from request for surgery [id number] Elevated blood pressure read ing without diagnosis of hypertension 01/26/2018 Sciatica of right side 02/03/2017 Diverticulosis of large intestine without hemorr boaz 08/13/2015 Hyperlipidemia with target LDL less than 100 Overview (07/20/2023): Assessment & Plan (07/20/2023 4:46 PM ELECTRICIAN APPRENTICE): Updated lipid panel ordered. Degeneration of lumbar or lumbosacral interverte bral disc 03/29/2012 Herniated lumbar intervertebral disc 03/29/2012 Chronic low back pain 07/19/2008 Immunizations Name Administration Dates Next Due Influenza, Unspecified 07/20/2023(Deferr ed: Patient Refused),08/09/2022(Deferred: Patient Refused) Social History Tobacco Use Types Packs/Day Years Used Date Smoking Tobacco: Never Passive Smoke Exposure: Past Smokeless Tobacco: Never Alcohol Use Standard Drinks/Week Comments Yes 0 (1 standard drink = 0.6 oz pur e alcohol) AUDIT-C Answer Date Recorded Q1: How often do you have a drink containing alc ohol? 2-4 times a month 07/28/2023 Q2: How many drinks containi ng alcohol do you have on a typical day when you are drinking? 1 or 2 07/28/2023 Q3: How often do you have si x or more drinks on one occasion? Never 07/28/2023 PHQ-2 Answer Date Recorded PHQ-2 Total Score (If total score is 3 or more points, staff should administer the PHQ-9) 0 02/16/2024 Sex and Gender Information Value Date Recorded Sex Assigned at Not on file Legal Sex Male 3:07 AM ELECTRICIAN APPRENTICE Gender Identity Not on file Sexual Orientation Not on file Last Filed Vital Signs Vital Sign Reading Time Taken Comments Blood Pressure 112/76 05/08/2024 2:39 PM CDT Pulse 94 05/08/2024 2:39 PM CDT Temperature 36.9 C (98.5 F) 02/16/2024 8:39 AM CDT Respiratory Rate 18 08/17/2023 2:20 PM ELECTRICIAN APPRENTICE Oxygen Saturation 97% 05/08/2024 2:39 PM CDT Inhaled Oxygen Concentration - - Weight 93.6 kg (206 lb 6.4 oz) 05/08/2024 2:39 P M CDT Height 182.9 cm (6') 05/08/2024 2:39 PM CDT Body Mass Index 27.99 05/08/2024 2:39 PM CDT Plan of Treatment Not on file Procedures Procedure Name Priority Date/Time Associated Diagnosis Comments PSA SCREEN Routine 08/18/2023 7:40 AM ELECTRICIAN APPRENTICE Screening PSA (prostate specific antigen) HEPATITIS C ANTIBODY Routine 06/23/2023 6:13 AM ELECTRICIAN APPRENTICE Arthralgia, unspecified joint COLONOSCOPY Routine 07/08/2015 from Last 3 Months or Most Recently Relevant to Health Maintenance Results * PSA screen (08/18/2023 7:40 AM ELECTRICIAN APPRENTICE) PSA 0.84 < OR = 4.00 ng/mL [facility] Comment: The total PSA value from this assay system is standardized against the WHO standard. The test result will be approximately 20% lower when compared to the equimolar-standardized total PSA ([place]). Comparison of serial PSA results should be interpreted with this fact in mind. This test was performed using the Siemens chemiluminescent method. Values obtained from different assay methods cannot be used interchangeably. PSA levels, regardless of value, should not be interpreted as absolute evidence of the presence or absence of disease. Blood 08/18/2023 7:40 AM ELECTRICIAN APPRENTICE 08/18/2023 7:41 AM ELECTRICIAN APPRENTICE Narrative [facility] - 08/19/2023 2:14 PM ELECTRICIAN APPRENTICE FASTING:YES FASTING: YES us Mag Kat NP LAB BLOOD ORDERABLES Final Resul t [facility] [address] [place] [address] * Hepatitis C antibody Blood (06/23/2023 6:13 AM ELECTRICIAN APPRENTICE) Hep C Ab NON-REACTI VE NON-REACT SCOT [facility] Comment: HCV antibody was non-reactive. There is no laboratory evidence of HCV infection. In most cases, no further action is required. However, if recent HCV exposure is suspected, a test for HCV RNA (test code 24550) is suggested. For additional information please refer to http://education.Pradama/faq/EZH36y1 (This link is being provided for informational/ educational purposes only.) Blood 06/23/2023 6:13 AM ELECTRICIAN APPRENTICE 06/23/2023 6:13 AM ELECTRICIAN APPRENTICE Narrative [facility] - 06/24/2023 1:50 PM ELECTRICIAN APPRENTICE FASTING:YES FASTING: YES Lolis Yeh MD LAB MICROBIOLOGY - [facility] ORDERABLES Final Result LAUR[facility] [address] [place] [address] * Colonoscopy (07/08/2015) Anatomical Region Laterality Modality Other Historical Provider ENDOSCOPY PROCEDURES Kasie l Result from Last 3 Months or Most Recently Relevant to Health Maintenance Insurance [facility] ActiveSec SD ActiveSec [place] Care Teams Brass Pourer Relationship Specialty Start Date End Date Mag Kat NP [address] [address] PCP - General Family Medicine 07/20/23 Geovani Hollis MD [address] [facility] [place] [address] Consulting Physician Plastic Surgery 07/20/23 Lolis Yeh MD [address] [facility] [place] [address] Fellow Rheumatology 07/20/23
--- OUTSIDE RECORDS SUMMARY | 2024-09-22 02:25 | XMS_ITS | Encounter Summary ---
Author Organization [facility] Address 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
--- OUTSIDE RECORDS SUMMARY | 2024-09-22 02:25 | XMS_ITS | Encounter Summary ---
Author Organization [facility] Address [address] [place] [address] Care Team Providers Care Delinquent Tax Collector Assistant Name Role Phone Jonelle Sol MD Primary Care Provider [phone] Encounter Details Date Type Department Care Team (Late st Contact Info) Description 07/18/2002 Outpatient Historical [facility] [address] [place] [address] Everardo Li DO NO ADDRESS ON FILE Social History Tobacco Use Types Packs/Day Years Used Date Smoking Tobacco: Never Assessed Sex and Gender Information Value Date Recorded Sex Assigned at Not on file Legal Sex Male 4:39 AM SOLE TIER Gender Identity Not on file Sexual Orientation Not on file documented as of this encounter Plan of Treatment Not on file documented as of this encounter Visit Diagnoses Not on filedocumented in this encounter Care Teams Delinquent Tax Collector Assistant Relationship Specialty Start Date End Date Jonelle Sol MD PCP - General 07/19/08 documented as of this encounter
--- OUTSIDE RECORDS SUMMARY | 2024-09-22 02:25 | XMS_ITS | Encounter Summary ---
Author Organization [facility] Address 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
--- OUTSIDE RECORDS SUMMARY | 2024-09-22 02:25 | XMS_ITS | Encounter Summary ---
Author Organization [facility] Address 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
--- OUTSIDE RECORDS SUMMARY | 2024-09-22 02:25 | XMS_ITS | Encounter Summary ---
Author Organization [facility] Address 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
--- OUTSIDE RECORDS SUMMARY | 2024-09-22 02:25 | XMS_ITS | Encounter Summary ---
Author Organization [facility] [place] Address 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
--- OUTSIDE RECORDS SUMMARY | 2024-09-22 02:25 | XMS_ITS | Encounter Summary ---
Author Organization [facility] Address 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
--- OUTSIDE RECORDS SUMMARY | 2024-09-22 02:25 | XMS_ITS | Encounter Summary ---
Author Organization [facility] Address [address] [place] [address] Care Team Providers Care Traffic Reporter Name Role Phone Jonelle Sol MD Primary Care Provider Encounter Details Date Type Department Care Team (Late st Contact Info) Description 07/17/2003 Outpatient Historical [facility] [address] [place] [address] Everardo Li DO NO ADDRESS ON FILE Social History Tobacco Use Types Packs/Day Years Used Date Smoking Tobacco: Never Assessed Sex and Gender Information Value Date Recorded Sex Assigned at Not on file Legal Sex Male 4:39 AM DEEP SEA DIVER Gender Identity Not on file Sexual Orientation Not on file documented as of this encounter Plan of Treatment Not on file documented as of this encounter Visit Diagnoses Not on filedocumented in this encounter Care Teams Traffic Reporter Relationship Specialty Start Date End Date Jonelle Sol MD PCP - General 07/19/08 documented as of this encounter
--- OUTSIDE RECORDS SUMMARY | 2024-09-22 02:25 | XMS_ITS | Encounter Summary ---
Author Organization [facility] Address 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
--- OUTSIDE RECORDS SUMMARY | 2024-09-22 02:25 | XMS_ITS | Encounter Summary ---
Author Organization [facility] Address [address] [place] [address] Care Team Providers Care Composite Bond Worker Name Role Phone Jonelle Sol MD Primary Care Provider [phone] Encounter Details Date Type Department Care Team (Late st Contact Info) Description 09/30/2000 Outpatient Historical [facility] [address] [place] [address] Everardo Li DO NO ADDRESS ON FILE Social History Tobacco Use Types Packs/Day Years Used Date Smoking Tobacco: Never Assessed Sex and Gender Information Value Date Recorded Sex Assigned at Not on file Legal Sex Male 4:39 AM RN OPERATING ROOM Gender Identity Not on file Sexual Orientation Not on file documented as of this encounter Plan of Treatment Not on file documented as of this encounter Visit Diagnoses Not on filedocumented in this encounter Care Teams Composite Bond Worker Relationship Specialty Start Date End Date Jonelle Sol MD PCP - General 07/19/08 documented as of this encounter
--- OUTSIDE RECORDS SUMMARY | 2024-09-22 02:25 | XMS_ITS | Encounter Summary ---
Author Organization [email or web address] Address 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
--- OUTSIDE RECORDS SUMMARY | 2024-09-22 02:25 | XMS_ITS | Encounter Summary ---
Author Organization [facility] Address 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
--- OUTSIDE RECORDS SUMMARY | 2024-09-22 02:25 | XMS_ITS | Clinical Summary ---
Author Organization [facility] Address [address] [place] [address] Care Team Providers Care Forensic Chemist Name Role Phone Mag Kat NP Primary Care Provider [phone] Geovani Hollis MD Unavailable Lolis Yeh MD Unavailable [phone] Allergies No known active allergies Medications ibuprofen [...] daily. Assessment & Plan (08/17/2023 2:48 PM PASSENGER VESSEL CHEF): BP much improved, continuing Losartan 25 mg daily. Awaiting labs, he is getting drawn tomorrow via [facility]. Assessment & Plan (07/20/2023 4:45 PM PASSENGER VESSEL CHEF): Has been out of medication x 3 months. Will restart with Losartan 25 mg daily. Home BP log. Renal function x 1 month ago stable. 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 Degeneration of lumbar or lumbosacral interverte bral disc 03/29/2012 Herniated lumbar intervertebral disc 03/29/2012 Chronic low back pain 07/19/2008 Encounters Date Type Department Care Team Description 09/19/2024 Telephone [facility] Primary Care at [address] [address] Mag Kat NP 08/14/2024 10:00 AM PASSENGER VESSEL CHEF Telemedicine [facility] Rheumatology [address] [place] [address] 5th [place] [address] [place] [address] Lolis Yeh MD Calcium pyrophosphate deposition disease (CPPD) (Primary Dx); Wrist arthritis; High risk medication use from Last 3 Months Immunizations Name Administration Dates Next Due Influenza, Unspecified 07/20/2023(Deferr ed: Patient Refused),08/09/2022(Deferred: Patient Refused) Surgical History Surgery Date Site/Laterality Comments BACK SURGERY 08/09/1995 - 08/08/1996 infusion arnaud and screws SHOULDER SURGERY 08/09/1998 - 08/08/1999 Bilateral BACK SURGERY 08/09/1994 - 08/08/1995 ELBOW SURGERY 08/09/2021 - 08/08/2022 Bilateral FOOT SURGERY 08/09/2020 - 08/08/2021 Right hammer toe, bunion, screwed toes together COLONOSCOPY last one 06/2015 Family History Medical History Relation Name Comments Anesthesia problems Neg Hx Social History Tobacco Use Types Packs/Day Years [...] on file Legal Sex Male 3:07 AM PASSENGER VESSEL CHEF Gender Identity Not on file Sexual Orientation Not on file Obstetrics History Last Filed Vital Signs Vital Sign Reading Time Taken Comments Blood Pressure 112/76 05/08/2024 2:39 PM CDT Pulse 94 05/08/2024 2:39 PM CDT Temperature 36.9 C (98.5 F) 02/16/2024 8:39 AM CDT Respiratory Rate 18 08/17/2023 2:20 PM PASSENGER VESSEL CHEF Oxygen Saturation 97% 05/08/2024 2:39 PM CDT Inhaled Oxygen Concentration - - Weight 93.6 kg (206 lb 6.4 oz) 05/08/2024 2:39 P M CDT Height 182.9 cm (6') 05/08/2024 2:39 PM CDT Body Mass Index 27.99 05/08/2024 2:39 PM CDT Plan of Treatment Health Maintenance Due Date Last Done Comments Pneumococcal vaccine <65 (1 of 2 - PCV) 1967 DTaP/Tdap/Td Vaccine (1 - Tdap) 1972 Regular Well Visit/Exam 18-64 1979 Zoster Vaccine (1 of 2) 1980 Influenza Vaccine (#1) 2024 Depression Screening 02/15/2025 02/16/2024, 01/26/2024, 08/17/2023, Additional history exists Colon Cancer Screening-Colonoscopy 07/08/2025 07/08/2015, 07/08/2015 Prostate Cancer Screening-PSA 08/18/2025 08/18/2023 Colon Cancer Screening-CT Colonography Discontinued 07/08/2015 Colon Cancer Screening-DNA Stool Discontinued 07/08/20 Colon Cancer Screening-FIT Discontinued 07/08/2015 Colon Cancer Screening-Sigmoidoscopy Discontinued 07/08/2015 Hepatitis B Screening Completed 06/23/2023 Hepatitis C Screening Completed 06/23/2023 Procedures Procedure Name Priority Date/Time Associated Diagnosis Comments PSA SCREEN Routine 08/18/2023 7:40 AM PASSENGER VESSEL CHEF Screening PSA (prostate specific antigen) HEPATITIS C ANTIBODY Routine 06/23/2023 6:13 AM PASSENGER VESSEL CHEF Arthralgia, unspecified joint COLONOSCOPY Routine 07/08/2015 from Last 3 Months or Most Recently Relevant to Health Maintenance Results * PSA screen (08/18/2023 7:40 AM PASSENGER VESSEL CHEF) PSA 0.84 < OR = 4.00 ng/mL [facility] Comment: The total PSA value from this assay system is standardized against the WHO standard. The test result will be approximately 20% lower when compared to the equimolar-standardized total PSA (Misty Toshia). Comparison of serial PSA results should be interpreted with this fact in mind. This test was performed using the Siemens chemiluminescent method. Values obtained from different assay methods cannot be used interchangeably. PSA levels, regardless of value, should not be interpreted as absolute evidence of the presence or absence of disease. Blood 08/18/2023 7:40 AM PASSENGER VESSEL CHEF 08/18/2023 7:41 AM PASSENGER VESSEL CHEF Narrative [facility] - 08/19/2023 2:14 PM PASSENGER VESSEL CHEF FASTING:YES FASTING: YES Mag Kat NP LAB BLOOD ORDERABLES Final Resul t [facility] [address] [place] [address] * Hepatitis C antibody Blood (06/23/2023 6:13 AM PASSENGER VESSEL CHEF) Hep C Ab NON-REACTI VE NON-REACT SCOT [facility] Comment: HCV antibody was non-reactive. There is no laboratory evidence of HCV infection. In most cases, no further action is required. However, if recent HCV exposure is suspected, a test for HCV RNA (test code 36182) is suggested. For additional information please refer to http://education.roomlinx/faq/NNY95r6 (This link is being provided for informational/ educational purposes only.) Blood 06/23/2023 6:13 AM PASSENGER VESSEL CHEF 06/23/2023 6:13 AM PASSENGER VESSEL CHEF Narrative [facility] - 06/24/2023 1:50 PM PASSENGER VESSEL CHEF FASTING:YES FASTING: YES Lolis Yeh MD LAB MICROBIOLOGY - GE NERAL ORDERABLES Final Result [facility] [id number] [address] [id number] * Colonoscopy (07/08/2015) Anatomical Region Laterality Modality Other us Historical Provider ENDOSCOPY PROCEDURES Kasie l Result from Last 3 Months or Most Recently Relevant to Health Maintenance [place] [facility] Care Teams Forensic Chemist Relationship Specialty Start Date End Date Mag Kat NP [facility] [address] [place] [address] PCP - General Family Medicine 07/20/23 Geovani Hollis MD 1 [facility] [place] [address] Consulting Physician Plastic Surgery 07/20/23 Lolis Yeh MD [address] [facility] [place] [address] Fellow Rheumatology 07/20/23
--- OUTSIDE RECORDS SUMMARY | 2024-09-22 02:25 | XMS_ITS | Clinical Summary ---
Author Organization [facility] Address [address] [place] [address] Care Team Providers Care Adobe Cq Developer Name Role Phone Lisa Patino [facility] Primary Care Provider + Social History Tobacco Use Types Packs/Day Years Used Date Smoking Tobacco: Never Assessed Sex and Gender Information Value Date Recorded Sex Assigned at Not on file Legal Sex Male 6:25 PM CDT Gender Identity Not on file Sexual Orientation Not on file Plan of Treatment Health Maintenance Due Date Last Done Comments Colorectal Cancer Screening Colonoscopy (10 Years) 1961 Annual Physical 1964 PHQ-2 (Physician Haywood) 1973 Hepatitis C 1979 DTaP, Tdap and Td Vaccines ( 1 - Tdap) 1980 Zoster Vaccines (1 of 2) 2011 COVID-19 Vaccine ( - 2023-2 5 season) 2024 Influenza Adult (#1) 2024 PHQ-2 (Physician Clicko) 08/09/2024 RSV Immunization or 60+ Years (1 - 1-dose 75+ series) 2036 Meningococcal B Vaccine Aged Out No l onger eligible based on patient's age to complete this topic Meningococcal Vaccine Aged Out No michelle gisselle eligible based on patient's age to complete this topic Pneumococcal Vaccine: Pediat rics (0 to 5 Years) and At-Risk Patients (6 to 64 Years) Aged Out No longer eligible b ased on patient's age to complete this topic RSV Immunizations Under 20 Months Aged Out No longer eligible based on patient's age to complete this topic [place] [address] [place] [address] Care Teams Adobe Cq Developer Relationship Specialty Start Date End Date Lisa Patino, RF MICROWAVE ENGINEER- [address], [address] [place] [address] PCP - General Nurse Practitioner Family 04/30/23
--- OUTSIDE RECORDS SUMMARY | 2024-09-22 02:25 | XMS_ITS | Encounter Summary ---
Author Organization [facility] Address 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
--- OUTSIDE RECORDS SUMMARY | 2024-09-22 02:25 | XMS_ITS | Encounter Summary ---
Author Organization [facility] Address 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
--- OUTSIDE RECORDS SUMMARY | 2024-09-22 02:25 | XMS_ITS | Encounter Summary ---
Author Organization [facility] Address 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
--- OUTSIDE RECORDS SUMMARY | 2024-09-22 02:25 | XMS_ITS | Encounter Summary ---
Author Organization [facility] Address [address] [place] [address] Care Team Providers Care Disability Insurance Claim Examiner Name Role Phone Jonelle Sol MD Primary Care Provider Encounter Details Date Type Department Care Team (Late st Contact Info) Description 12/23/2005 Outpatient Historical [facility] [address] [place] [address] Jonelle Sol MD [facility] [place] [address] Social History Tobacco Use Types Packs/Day Years Used Date Smoking Tobacco: Never Assessed Sex and Gender Information Value Date Recorded Sex Assigned at Not on file Legal Sex Male 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
--- OUTSIDE RECORDS SUMMARY | 2024-09-22 02:25 | XMS_ITS | Encounter Summary ---
Author Organization [facility] Address [address] [place] [address] Care Team Providers Care Floral Designer Name Role Phone Jonelle Sol MD Primary Care Provider Encounter Details Date Type Department Care Team (Late st Contact Info) Description 08/30/2000 Outpatient Historical [facility] [address] [place] [address] Everardo Li DO NO ADDRESS ON FILE Social History Tobacco Use Types Packs/Day Years Used Date Smoking Tobacco: Never Assessed Sex and Gender Information Value Date Recorded Sex Assigned at Not on file Legal Sex Male 4:39 AM CLIENT SOLUTIONS SPECIALIST Gender Identity Not on file Sexual Orientation Not on file documented as of this encounter Plan of Treatment Not on file documented as of this encounter Visit Diagnoses Not on filedocumented in this encounter Care Teams Floral Designer Relationship Specialty Start Date End Date Jonelle Sol MD PCP - General 07/19/08 documented as of this encounter
--- OUTSIDE RECORDS SUMMARY | 2024-09-22 02:25 | XMS_ITS | Encounter Summary ---
Author Organization [facility] Address [address] [place] [address] Care Team Providers Care Biostatistician Name Role Phone Jonelle Sol MD Primary Care Provider [phone] Encounter Details Date Type Department Care Team (Late st Contact Info) Description 08/25/2007 Outpatient [facility] Primary Care - [address] [phone] Jonelle Sol MD [address] [place] [address] Social History Tobacco Use Types Packs/Day Years Used Date Smoking Tobacco: Never Assessed Sex and Gender Information Value Date Recorded Sex Assigned at Not on file Legal Sex Male 4:39 AM ORDERING BOX OPERATOR Gender Identity Not on file Sexual Orientation Not on file documented as of this encounter Plan of Treatment Not on file documented as of this encounter Visit Diagnoses Not on filedocumented in this encounter Care Teams Biostatistician Relationship Specialty Start Date End Date Jonelle Sol MD PCP - General 07/19/08 documented as of this encounter
--- OUTSIDE RECORDS SUMMARY | 2024-09-22 02:25 | XMS_ITS | Encounter Summary ---
Author Organization [facility] Address 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
--- OUTSIDE RECORDS SUMMARY | 2024-09-22 02:25 | XMS_ITS | Encounter Summary ---
Author Organization [facility] Address [address] [place] [address] Care Team Providers Care Colorist Formulator Name Role Phone Mag Kat NP Primary Care Provider Geovani Hollis MD Unavailable [phone] Lolis Yeh MD Unavailable Encounter Details Date Type Department Care Team (Late st Contact Info) Description 01/17/2024 Telephone [facility] Primary Care at [address] [address] Mag Kat NP [address] [place] [address] Social History Tobacco Use Types Packs/Day Years [...] points, staff should administer the PHQ-9) 0 08/17/2023 Sex and Gender Information Value Date Recorded Sex Assigned at Not on file Legal Sex Male 3:07 AM SUBGRADE TESTER Gender Identity Not on file Sexual Orientation Not on file documented as of this encounter Plan of Treatment Not on file documented as of this encounter Visit Diagnoses Not on filedocumented in this encounter Care Teams Colorist Formulator Relationship Specialty Start Date End Date Mag Kat NP [address] [facility] [address] [place] [address] PCP - General Family Medicine 07/20/23 Geovani Hollis MD 1 [facility] [place] [address] Consulting Physician Plastic Surgery 07/20/23 Lolis Yeh MD 1 [facility] [place] [address] Fellow Rheumatology 07/20/23 documented as of this encounter
--- OUTSIDE RECORDS SUMMARY | 2024-09-22 02:25 | XMS_ITS | Encounter Summary ---
Author Organization [facility] Address [address] [place] [address] Care Team Providers Care Lpn Home Health Name Role Phone Jonelle Sol MD Primary Care Provider Encounter Details Date Type Department Care Team (Late st Contact Info) Description 10/09/2003 Outpatient Historical [facility] [address] [place] [address] Everardo Li DO NO ADDRESS ON FILE Social History Tobacco Use Types Packs/Day Years Used Date Smoking Tobacco: Never Assessed Sex and Gender Information Value Date Recorded Sex Assigned at Not on file Legal Sex Male 4:39 AM JAILOR Gender Identity Not on file Sexual Orientation Not on file documented as of this encounter Plan of Treatment Not on file documented as of this encounter Visit Diagnoses Not on filedocumented in this encounter Care Teams Lpn Home Health Relationship Specialty Start Date End Date Jonelle Sol MD PCP - General 07/19/08 documented as of this encounter
--- OUTSIDE RECORDS SUMMARY | 2024-09-22 02:25 | XMS_ITS | Encounter Summary ---
Author Organization [facility] Address [address] [place] [address] Care Team Providers Care Multifold Operator Name Role Phone Jonelle Sol MD Primary Care Provider Encounter Details Date Type Department Care Team (Late st Contact Info) Description 09/20/2000 Outpatient Historical [facility] [address] [place] [address] Everardo iL DO NO ADDRESS ON FILE Social History Tobacco Use Types Packs/Day Years Used Date Smoking Tobacco: Never Assessed Sex and Gender Information Value Date Recorded Sex Assigned at Not on file Legal Sex Male 4:39 AM EMR IMPLEMENTATION SPECIALIST Gender Identity Not on file Sexual Orientation Not on file documented as of this encounter Plan of Treatment Not on file documented as of this encounter Visit Diagnoses Not on filedocumented in this encounter Care Teams Multifold Operator Relationship Specialty Start Date End Date Jonelle Sol MD PCP - General 07/19/08 documented as of this encounter
--- OUTSIDE RECORDS SUMMARY | 2024-09-22 02:25 | XMS_ITS | Encounter Summary ---
Author Organization [facility] Address 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
--- OUTSIDE RECORDS SUMMARY | 2024-09-22 02:25 | XMS_ITS | Encounter Summary ---
Author Organization [facility] Address 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
--- OUTSIDE RECORDS SUMMARY | 2024-09-22 02:25 | XMS_ITS | Encounter Summary ---
Author Organization [facility] Address 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
--- OUTSIDE RECORDS SUMMARY | 2024-09-22 02:25 | XMS_ITS | Encounter Summary ---
Author Organization [facility] Address 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
--- OUTSIDE RECORDS SUMMARY | 2024-09-22 02:25 | XMS_ITS | Encounter Summary ---
Author Organization [facility] Address 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
--- OUTSIDE RECORDS SUMMARY | 2024-09-22 02:25 | XMS_ITS | Patient Health Record ---
Author Organization [facility] Address [address] [facility] [address] [place], [place] [id number] Care Team Providers Care Network Pricing Consultant Name Role Phone Everardo Li D.O. Primary Care Provider John Mireles Unavailable [phone] Migration, Provider Unavailable Unavailable Allergies No Known Allergies Reason For Referral No Information Medications Medication SIG (Take, Route, Fr equency, Duration) Notes Start Date End Date Status Lisinopril 2.5 MG 1 tab(s) orally once a day for 30 day(s) Active Problems Problem Type SNOMED Code ICD Code Onset Dates Problem Status W/U Status Risk Notes Problem Deviated nasal septum (199109342) Deviated nasal septum (J34.2) Active confirmed Problem Dizziness and giddiness (688250536) Dizziness and giddiness (R42) Active confirmed Problem Hypertension (43182663) Hypertension (I10) Active confirmed Encounters Encounter Location Date Provider Diagnosis [facility] [place] [address] [address] [facility] [place], [place] [id number] 07/22/2024 Provider Migration Plan Of Treatment No Information Insurance Providers Payer Name Payer Address Payer Phone Subscriber Number Group Number Insured Name Patient Relationship to Insured Coverage Start Date Coverage End Date [facility] [address] [place] [address] [id number] Reggie Ruano Self - patient is the insured Medical (General) History Medical History History ICD Code Pertinent Medical History: High blood pr essure, History of skin cancer, Surgical History Surgery Date(Month/Year) back fusion b/l rotator cuff bunionectomy carpal tunnel
--- OUTSIDE RECORDS SUMMARY | 2024-09-22 02:25 | XMS_ITS | Encounter Summary ---
Author Organization [facility] Address [address] [place] [address] Care Team Providers Care Head Nurse Name Role Phone Jonelle Sol MD Primary Care Provider Encounter Details Date Type Department Care Team (Late st Contact Info) Description 10/05/2000 Outpatient Historical [facility] [address] [place] [address] Everardo Li DO NO ADDRESS ON FILE Social History Tobacco Use Types Packs/Day Years Used Date Smoking Tobacco: Never Assessed Sex and Gender Information Value Date Recorded Sex Assigned at Not on file Legal Sex Male 4:39 AM LAY MIDWIFE Gender Identity Not on file Sexual Orientation Not on file documented as of this encounter Plan of Treatment Not on file documented as of this encounter Visit Diagnoses Not on filedocumented in this encounter Care Teams Head Nurse Relationship Specialty Start Date End Date Jonelle Sol MD PCP - General 07/19/08 documented as of this encounter
--- OUTSIDE RECORDS SUMMARY | 2024-09-22 02:25 | XMS_ITS | Encounter Summary ---
Author Organization [facility] Address [address] [place] [address] [place] [address] Care Team Providers Care Child Welfare Caseworker Name Role Phone Everardo Li DO Primary Care Provider Carmencita betancourt Pcp, May Garcia Primary Care Provider Sara ailable Encounter Details Date Type Department Care Team (Late st Contact Info) Description 03/29/2012 [facility] Guillermo Mcgee MD NEED ADDRESS UPDATED Social History Tobacco Use Types Packs/Day Years Used Date Smoking Tobacco: Never Alcohol Use Standard Drinks/Week Comments Yes 0 (1 standard drink = 0.6 oz pur e alcohol) beer rarely Sex and Gender Information Value Date Recorded Sex Assigned at Not on file Gender Identity Not on file Sexual Orientation Not on file documented as of this encounter Plan of Treatment Not on file documented as of this encounter Visit Diagnoses Not on filedocumented in this encounter Care Teams Child Welfare Caseworker Relationship Specialty Start Date End Date Everardo Li DO PCP - General Family Medicine 03/29/12 02/10/23 PcpMay PCP - General 02/11/23 documented as of this encounter
--- OUTSIDE RECORDS SUMMARY | 2024-09-22 02:25 | XMS_ITS | Clinical Summary ---
Author Organization [facility] Address [address] [place] [address] MARCELA Luciano [address] Phone Care Team Providers Care Stage Setting Painter Apprentice Name Role Phone Jonelle Sol MD Primary Care Provider Allergies No known active allergies Medications methocarbamol (ROBAXIN) 750 mg Oral Tab Take 1 Tab by mouth 3 times daily. 90 Tab 3 01/16/2009 Active HYDROcodone-acet aminophen (LORTAB) 10-500 mg Oral TabIndications:C hronic low back pain Take 1 Tab by mouth every 6 hours as needed. 90 Tab 0 04/04/2010 Active oxyCODONE CR (OXYCONTIN) 20 mg Oral tabletIndication s:Chronic low back pain Take 1 Tab by mouth every 8 hours as needed for Pain, Severe. 90 Tab 0 06/10/2010 Active Active Problems Problem Noted Date Diagnosed Date Chronic low back pain 07/19/2008 Family History Medical History Relation Name Comments Healthy Brother Healthy Daughter Lung Cancer Father Respiratory Disease Mother Unknown Mother Healthy Sister 1 Healthy Sister 2 Healthy Son Relation Name Status Comments Brother Alive Daughter Alive Father Mother Alive Sister 1 Alive Sister 2 Alive Son Alive Social History Tobacco Use Types Packs/Day Years Used Date Smoking Tobacco: Never Alcohol Use Standard Drinks/Week Comments Yes 0 (1 standard drink = 0.6 oz pur e alcohol) 2 beers occasionally Sex and Gender Information Value Date Recorded Sex Assigned at Not on file Legal Sex Male 4:39 AM SECURITY SYSTEMS SPECIALIST Gender Identity Not on file Sexual Orientation Not on file Last Filed Vital Signs Vital Sign Reading Time Taken Comments Blood Pressure 140/80 04/04/2010 2:38 PM CDT Pulse 76 10/07/2009 10:41 AM SECURITY SYSTEMS SPECIALIST Temperature 36.6 C (97.9 F) 04/04/2010 2:38 PM CDT Respiratory Rate 16 10/07/2009 10:41 AM SECURITY SYSTEMS SPECIALIST Oxygen Saturation - - Inhaled Oxygen Concentration - - Weight 91.7 kg (202 lb 3.2 oz) 04/04/2010 2:38 P M CDT Height 182.9 cm (6') 11/15/2008 10:00 AM CDT Body Mass Index 27.42 11/15/2008 10:00 AM CDT Plan of Treatment Health Maintenance Due Date Last Done Comments DTAP/TDAP/TD VACCINES (1 - Tdap) 1980 COLORECTAL SCREENING 2006 Colorectal Cancer Screening 2006 FIT-DNA Q 3 years 2006 FIT/FOBT Q 1 year 2006 Flex Sig/CT Colonography Q 5 years 2006 ZOSTER VACCINE (1 of 2) 2011 INFLUENZA VACCINE (#1) 2024 RSV VACCINE (60+ or ) (1 - 1-dose 75+ series) 2036 PNEUMOCOCCAL VACCINE 0-64 YEARS Aged Out No longer eligible based on patient's age to complete this topic Insurance BLUE ACCESS/TRUE BLUE PPO Care Teams Stage Setting Painter Apprentice Relationship Specialty Start Date End Date Jonelle Sol MD PCP - General 07/19/08
--- OUTSIDE RECORDS SUMMARY | 2024-09-22 02:25 | XMS_ITS | Encounter Summary ---
Author Organization [facility] Address [address] [place] [address] Care Team Providers Care Dual Rate Supervisor Name Role Phone Jonelle Sol MD Primary Care Provider Encounter Details Date Type Department Care Team (Late st Contact Info) Description 09/27/2000 Outpatient Historical [facility] [address] [place] [address] Everardo iL DO NO ADDRESS ON FILE Social History Tobacco Use Types Packs/Day Years Used Date Smoking Tobacco: Never Assessed Sex and Gender Information Value Date Recorded Sex Assigned at Not on file Legal Sex Male 4:39 AM ANIMAL CARE GIVER Gender Identity Not on file Sexual Orientation Not on file documented as of this encounter Plan of Treatment Not on file documented as of this encounter Visit Diagnoses Not on filedocumented in this encounter Care Teams Dual Rate Supervisor Relationship Specialty Start Date End Date Jonelle Sol MD PCP - General 07/19/08 documented as of this encounter
--- OUTSIDE RECORDS SUMMARY | 2024-09-22 02:26 | XMS_ITS | Encounter Summary ---
Author Organization [facility] Address [address] [place] [address] Care Team Providers Care Picture Enlarger Name Role Phone Jonelle Sol MD Primary Care Provider Encounter Details Date Type Department Care Team (Late st Contact Info) Description 07/27/2001 Outpatient Historical [facility] [address] [place] [address] Everardo Li DO NO ADDRESS ON FILE Social History Tobacco Use Types Packs/Day Years Used Date Smoking Tobacco: Never Assessed Sex and Gender Information Value Date Recorded Sex Assigned at Not on file Legal Sex Male 4:39 AM MECHANICAL ENGINEERING ADVISOR Gender Identity Not on file Sexual Orientation Not on file documented as of this encounter Plan of Treatment Not on file documented as of this encounter Visit Diagnoses Not on filedocumented in this encounter Care Teams Picture Enlarger Relationship Specialty Start Date End Date Jonelle Sol MD PCP - General 07/19/08 documented as of this encounter
--- OUTSIDE RECORDS SUMMARY | 2024-09-22 02:26 | XMS_ITS | Encounter Summary ---
Author Organization [facility] Address [address] [place] [address] Care Team Providers Care Bobbin Dumper Name Role Phone Jonelle Sol MD Primary Care Provider Encounter Details Date Type Department Care Team (Late st Contact Info) Description 10/19/2000 Outpatient Historical [facility] [address] [place] [address] Everardo Li DO NO ADDRESS ON FILE Social History Tobacco Use Types Packs/Day Years Used Date Smoking Tobacco: Never Assessed Sex and Gender Information Value Date Recorded Sex Assigned at Not on file Legal Sex Male 4:39 AM BAGGING SALVAGER Gender Identity Not on file Sexual Orientation Not on file documented as of this encounter Plan of Treatment Not on file documented as of this encounter Visit Diagnoses Not on filedocumented in this encounter Care Teams Bobbin Dumper Relationship Specialty Start Date End Date Jonelle Sol MD PCP - General 07/19/08 documented as of this encounter
--- OUTSIDE RECORDS SUMMARY | 2024-09-22 02:26 | XMS_ITS | Encounter Summary ---
Author Organization [facility] Address [address] [place] [address] Care Team Providers Care Radiator Fitter Name Role Phone Jonelle Sol MD Primary Care Provider Encounter Details Date Type Department Care Team (Late st Contact Info) Description 02/26/2000 Outpatient Historical [facility] [address] [place] [address] Everardo Li DO NO ADDRESS ON FILE Social History Tobacco Use Types Packs/Day Years Used Date Smoking Tobacco: Never Assessed Sex and Gender Information Value Date Recorded Sex Assigned at Not on file Legal Sex Male 4:39 AM GLASS CUTTER Gender Identity Not on file Sexual Orientation Not on file documented as of this encounter Plan of Treatment Not on file documented as of this encounter Visit Diagnoses Not on filedocumented in this encounter Care Teams Radiator Fitter Relationship Specialty Start Date End Date Jonelle Sol MD PCP - General 07/19/08 documented as of this encounter
--- OUTSIDE RECORDS SUMMARY | 2024-09-22 02:26 | XMS_ITS ---
Author Organization [facility] Address [facility] [address] [id number] Care Team Providers Care Research Epidemiologist Name Role Phone Everardo Li D.O. Primary Care Provider John Mireles Unavailable [phone] Migration, Provider Unavailable Unavailable REASON FOR VISIT Multum To Medispan Conversion Encounter Medications Medication SIG (Take, Route, Fr equency, Duration) Notes Start Date End Date Status Lisinopril 2.5 MG 1 tab(s) orally once a day for 30 day(s) Active Encounters Encounter Location Date Provider Diagnosis [facility] [address] [id number] 07/22/2024 Provider Migration Plan Of Treatment No Information Progress Notes * Reggie RUANODOB:[birth year] (64 yo M)Acc No.[id number]:07/22/2024 Patient: Reggie OLIVER Provider: Randall pantoja Migration :1960 A ge:64 Y S ex:Male Date:07/22/2024 Address:[address] [place] [id number] Pcp:Everardo Li D.O. Subjective: * Chief Complaints: * 1 . Multum To Medispan Conversion Encounter. * Medical History: * Medications: T aking Lisinopril 2.5 MG Tablet 1 tab(s) orally once a day Objective: * Vitals: * Physical Examination: Assessment: Plan: * Treatment: * * Electronic signature of Prov ider Migration on 09/22/2024 at 02:26 AM STRAIN TECHNICIAN Sign off status: Pending * Provider: Randall pantoja Migration Date: 1 09/22/2023 Generated for Yana rodriguez/Gerry/Brittany on: 0 09/22/2024 02:26 AM STRAIN TECHNICIAN
--- OUTSIDE RECORDS SUMMARY | 2024-09-22 02:26 | XMS_ITS | Encounter Summary ---
Author Organization [facility] Address [address] [place] [address] Care Team Providers Care Day Care Assistant Name Role Phone Jonelle Sol MD Primary Care Provider [phone] Encounter Details Date Type Department Care Team (Late st Contact Info) Description 06/28/2002 Outpatient Historical [facility] [address] [place] [address] Everardo Li DO NO ADDRESS ON FILE Social History Tobacco Use Types Packs/Day Years Used Date Smoking Tobacco: Never Assessed Sex and Gender Information Value Date Recorded Sex Assigned at Not on file Legal Sex Male 4:39 AM MOBILE HOME MECHANIC Gender Identity Not on file Sexual Orientation Not on file documented as of this encounter Plan of Treatment Not on file documented as of this encounter Visit Diagnoses Not on filedocumented in this encounter Care Teams Day Care Assistant Relationship Specialty Start Date End Date Jonelle Sol MD PCP - General 07/19/08 documented as of this encounter
--- OUTSIDE RECORDS SUMMARY | 2024-09-22 02:26 | XMS_ITS | Encounter Summary ---
Author Organization [facility] Address [address] [place] [address] Care Team Providers Care Athlete Manager Name Role Phone Jonelle Sol MD Primary Care Provider Encounter Details Date Type Department Care Team (Late st Contact Info) Description 01/21/2000 Outpatient Historical [facility] [address] [place] [address] Everardo Li DO NO ADDRESS ON FILE Social History Tobacco Use Types Packs/Day Years Used Date Smoking Tobacco: Never Assessed Sex and Gender Information Value Date Recorded Sex Assigned at Not on file Legal Sex Male 4:39 AM COMPUTER INFORMATION SYSTEMS PROFESSOR Gender Identity Not on file Sexual Orientation Not on file documented as of this encounter Plan of Treatment Not on file documented as of this encounter Visit Diagnoses Not on filedocumented in this encounter Care Teams Athlete Manager Relationship Specialty Start Date End Date Jonelle Sol MD PCP - General 07/19/08 documented as of this encounter
--- OUTSIDE RECORDS SUMMARY | 2024-09-22 02:26 | XMS_ITS | Encounter Summary ---
Author Organization [facility] Address [address] [place] [address] Care Team Providers Care Milk Processing Worker Name Role Phone Jonelle Sol MD Primary Care Provider [phone] Encounter Details Date Type Department Care Team (Late st Contact Info) Description 08/04/2000 Outpatient Historical [facility] [address] [place] [address] Everardo Li DO NO ADDRESS ON FILE Social History Tobacco Use Types Packs/Day Years Used Date Smoking Tobacco: Never Assessed Sex and Gender Information Value Date Recorded Sex Assigned at Not on file Legal Sex Male 4:39 AM TEST PULLER Gender Identity Not on file Sexual Orientation Not on file documented as of this encounter Plan of Treatment Not on file documented as of this encounter Visit Diagnoses Not on filedocumented in this encounter Care Teams Milk Processing Worker Relationship Specialty Start Date End Date Jonelle Sol MD PCP - General 07/19/08 documented as of this encounter
--- OUTSIDE RECORDS SUMMARY | 2024-09-22 02:26 | XMS_ITS | Encounter Summary ---
Author Organization [facility] Address [address] [place] [address] Care Team Providers Care Manager Operations Research Name Role Phone Jonelle Sol MD Primary Care Provider Encounter Details Date Type Department Care Team (Late st Contact Info) Description 10/11/2000 Outpatient Historical [facility] [address] [place] [address] Everardo Li DO NO ADDRESS ON FILE Social History Tobacco Use Types Packs/Day Years Used Date Smoking Tobacco: Never Assessed Sex and Gender Information Value Date Recorded Sex Assigned at Not on file Legal Sex Male 4:39 AM LEAD PROCESS ENGINEER Gender Identity Not on file Sexual Orientation Not on file documented as of this encounter Plan of Treatment Not on file documented as of this encounter Visit Diagnoses Not on filedocumented in this encounter Care Teams Manager Operations Research Relationship Specialty Start Date End Date Jonelle Sol MD PCP - General 07/19/08 documented as of this encounter
--- OUTSIDE RECORDS SUMMARY | 2024-09-22 02:26 | XMS_ITS | Encounter Summary ---
Author Organization [facility] Address [address] [place] [address] Care Team Providers Care Dealer Development Manager Name Role Phone Jonelle Sol MD Primary Care Provider Encounter Details Date Type Department Care Team (Late st Contact Info) Description 08/18/2000 Outpatient Historical [facility] [address] [place] [address] Everardo Li DO NO ADDRESS ON FILE Social History Tobacco Use Types Packs/Day Years Used Date Smoking Tobacco: Never Assessed Sex and Gender Information Value Date Recorded Sex Assigned at Not on file Legal Sex Male 4:39 AM BEHAVIORAL HEALTH CARE MANAGER Gender Identity Not on file Sexual Orientation Not on file documented as of this encounter Plan of Treatment Not on file documented as of this encounter Visit Diagnoses Not on filedocumented in this encounter Care Teams Dealer Development Manager Relationship Specialty Start Date End Date Jonelle Sol MD PCP - General 07/19/08 documented as of this encounter
--- OUTSIDE RECORDS SUMMARY | 2024-09-22 02:26 | XMS_ITS | Encounter Summary ---
Author Organization [facility] Address [address] [place] [address] Care Team Providers Care Trouble Lineman Name Role Phone Jonelle Sol MD Primary Care Provider [phone] Encounter Details Date Type Department Care Team (Late st Contact Info) Description 08/23/2000 Outpatient Historical [facility] [address] [place] [address] Everardo Li DO NO ADDRESS ON FILE Social History Tobacco Use Types Packs/Day Years Used Date Smoking Tobacco: Never Assessed Sex and Gender Information Value Date Recorded Sex Assigned at Not on file Legal Sex Male 4:39 AM IRRIGATION ENGINEER Gender Identity Not on file Sexual Orientation Not on file documented as of this encounter Plan of Treatment Not on file documented as of this encounter Visit Diagnoses Not on filedocumented in this encounter Care Teams Trouble Lineman Relationship Specialty Start Date End Date Jonelle Sol MD PCP - General 07/19/08 documented as of this encounter
--- OUTSIDE RECORDS SUMMARY | 2024-09-22 02:26 | XMS_ITS | Encounter Summary ---
Author Organization [facility] Address [address] [place] [address] Care Team Providers Care Racket Stringer Name Role Phone Jonelle Sol MD Primary Care Provider Encounter Details Date Type Department Care Team (Late st Contact Info) Description 11/01/2000 Outpatient Historical [facility] [address] [place] [address] Everardo Li DO NO ADDRESS ON FILE Social History Tobacco Use Types Packs/Day Years Used Date Smoking Tobacco: Never Assessed Sex and Gender Information Value Date Recorded Sex Assigned at Not on file Legal Sex Male 4:39 AM WATCH SUPERVISOR Gender Identity Not on file Sexual Orientation Not on file documented as of this encounter Plan of Treatment Not on file documented as of this encounter Visit Diagnoses Not on filedocumented in this encounter Care Teams Racket Stringer Relationship Specialty Start Date End Date Jonelle Sol MD PCP - General 07/19/08 documented as of this encounter
--- OUTSIDE RECORDS SUMMARY | 2024-09-22 02:26 | XMS_ITS | Encounter Summary ---
Author Organization [facility] Address [address] [place] [address] Care Team Providers Care Seismograph Helper Name Role Phone Jonelle Sol MD Primary Care Provider Encounter Details Date Type Department Care Team (Late st Contact Info) Description 10/07/2000 Outpatient Historical [facility] [address] [place] [address] Everardo Li DO NO ADDRESS ON FILE Social History Tobacco Use Types Packs/Day Years Used Date Smoking Tobacco: Never Assessed Sex and Gender Information Value Date Recorded Sex Assigned at Not on file Legal Sex Male 4:39 AM FLOUR TESTER Gender Identity Not on file Sexual Orientation Not on file documented as of this encounter Plan of Treatment Not on file documented as of this encounter Visit Diagnoses Not on filedocumented in this encounter Care Teams Seismograph Helper Relationship Specialty Start Date End Date Jonelle Sol MD PCP - General 07/19/08 documented as of this encounter
--- OUTSIDE RECORDS SUMMARY | 2024-09-22 02:26 | XMS_ITS | Encounter Summary ---
Author Organization [facility] Address [address] [place] [address] Care Team Providers Care Forest Engineer Name Role Phone Jonelle Sol MD Primary Care Provider Encounter Details Date Type Department Care Team (Late st Contact Info) Description 11/01/2000 Outpatient Historical [facility] [address] [place] [id number] Everardo Li DO NO ADDRESS ON FILE Social History Tobacco Use Types Packs/Day Years Used Date Smoking Tobacco: Never Assessed Sex and Gender Information Value Date Recorded Sex Assigned at Not on file Legal Sex Male 4:39 AM TRANSCRIPTIONIST Gender Identity Not on file Sexual Orientation Not on file documented as of this encounter Plan of Treatment Not on file documented as of this encounter Visit Diagnoses Not on filedocumented in this encounter Care Teams Forest Engineer Relationship Specialty Start Date End Date Jonelle Sol MD PCP - General 07/19/08 documented as of this encounter
--- OUTSIDE RECORDS SUMMARY | 2024-09-22 02:26 | XMS_ITS | Encounter Summary ---
Author Organization [facility] Address [address] [place] [address] Care Team Providers Care Encoding Machine Operator Name Role Phone Jonelle Sol MD Primary Care Provider Encounter Details Date Type Department Care Team (Late st Contact Info) Description 11/04/2000 Outpatient Historical [facility] [address] [place] [address] Everardo Li DO NO ADDRESS ON FILE Social History Tobacco Use Types Packs/Day Years Used Date Smoking Tobacco: Never Assessed Sex and Gender Information Value Date Recorded Sex Assigned at Not on file Legal Sex Male 4:39 AM TECHNICAL PLANNER Gender Identity Not on file Sexual Orientation Not on file documented as of this encounter Plan of Treatment Not on file documented as of this encounter Visit Diagnoses Not on filedocumented in this encounter Care Teams Encoding Machine Operator Relationship Specialty Start Date End Date Jonelle Sol MD PCP - General 07/19/08 documented as of this encounter
--- OUTSIDE RECORDS SUMMARY | 2024-09-22 02:26 | XMS_ITS | Encounter Summary ---
Author Organization [facility] Address [address] [place] [address] Care Team Providers Care School Bus Driver/Teacher Assistant Name Role Phone Jonelle Sol MD Primary Care Provider Encounter Details Date Type Department Care Team (Late st Contact Info) Description 10/25/2000 Outpatient Historical [facility] [address] [place] [address] Everardo Li DO NO ADDRESS ON FILE Social History Tobacco Use Types Packs/Day Years Used Date Smoking Tobacco: Never Assessed Sex and Gender Information Value Date Recorded Sex Assigned at Not on file Legal Sex Male 4:39 AM CORRECTIONS LIEUTENANT Gender Identity Not on file Sexual Orientation Not on file documented as of this encounter Plan of Treatment Not on file documented as of this encounter Visit Diagnoses Not on filedocumented in this encounter Care Teams School Bus Driver/Teacher Assistant Relationship Specialty Start Date End Date Jonelle Sol MD PCP - General 07/19/08 documented as of this encounter
--- OUTSIDE RECORDS SUMMARY | 2024-09-22 02:26 | XMS_ITS | Encounter Summary ---
Author Organization [facility] Address [address] [place] [address] Care Team Providers Care Turn Down Attendant Name Role Phone Jonelle Sol MD Primary Care Provider Encounter Details Date Type Department Care Team (Late st Contact Info) Description 11/04/2000 Outpatient Historical [facility] [address] [place] [address] Everardo Li DO NO ADDRESS ON FILE Social History Tobacco Use Types Packs/Day Years Used Date Smoking Tobacco: Never Assessed Sex and Gender Information Value Date Recorded Sex Assigned at Not on file Legal Sex Male 4:39 AM LENGTH CONTROL TESTER Gender Identity Not on file Sexual Orientation Not on file documented as of this encounter Plan of Treatment Not on file documented as of this encounter Visit Diagnoses Not on filedocumented in this encounter Care Teams Turn Down Attendant Relationship Specialty Start Date End Date Jonelle Sol MD PCP - General 07/19/08 documented as of this encounter
--- OUTSIDE RECORDS SUMMARY | 2024-09-22 02:26 | XMS_ITS | Encounter Summary ---
Author Organization [facility] Address [address] [place] [address] Phone Care Team Providers Care Offshore Wind Operations Manager Name Role Phone Everardo Li Primary Care Provider [phone] Mag Kat NP Primary Care Provider Pet, Geovani Nugent MD Unavailable [phone] Lolis Yeh MD Unavailable [phone] Encounter Details Date Type Department Care Team (Late st Contact Info) Description 06/20/2023 Orders Only [facility] Scanning, Provider Social History Tobacco Use Types Packs/Day Years Used Date Smoking Tobacco: Never Smokeless Tobacco: Never Alcohol Use Standard Drinks/Week Comments Yes 0 (1 standard drink = 0.6 oz pur e alcohol) AUDIT-C Answer Date Recorded Frequency of Alcohol Consumption 2-4 times a wed10/13/2018 Average Number of Drinks Not on file 019 Frequency of Binge Drinking Not on file 02/2019 Sex and Gender Information Value Date Recorded Sex Assigned at Not on file 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 Gender Identity Not on file Sexual Orientation Not on file documented as of this encounter Plan of Treatment Not on file documented as of this encounter Procedures Procedure Name Priority Date/Time Associated Diagnosis Comments SCAN - RADIOLOGY/IMAGING 06/20/2023 documented in this encounter Results * SCAN - RADIOLOGY/IMAGING (06/20/2023) Anatomical Region Laterality Modality Other us Provider Scanning Final Result documented in this encounter Visit Diagnoses Not on filedocumented in this encounter Care Teams Offshore Wind Operations Manager Relationship Specialty Start Date End Date Everardo Li DO [address] [place] [address] PCP - General Family Practice 10/07/18 07/19/23 Mag Kat NP [address] [facility] [address] [place] [address] PCP - General Family Medicine 07/20/23 Geovani Hollis MD [facility] [place] [address] Consulting Physician Plastic Surgery 07/20/23 Lolis Yeh MD [address] [facility] [place] [address] Fellow Rheumatology 07/20/23 documented as of this encounter
--- OUTSIDE RECORDS SUMMARY | 2024-09-22 02:26 | XMS_ITS | Encounter Summary ---
Author Organization [facility] Address 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
--- OUTSIDE RECORDS SUMMARY | 2024-09-22 02:26 | XMS_ITS | Encounter Summary ---
Author Organization [facility] Address 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
--- OUTSIDE RECORDS SUMMARY | 2024-09-22 02:26 | XMS_ITS | Patient Health Summary ---
Author Organization [facility] [employer] Address [address] [place] [address] Care Team Providers Care Life Scientist Name Role Phone Pcp, May Garcia Primary Care Provider Unav ailable Note from [facility] [employer] [facility],non-owned Affiliates and Associated Physician Practices is amultiple site organization consisting of ambulatory clinics and hospital sitesin [place], [place], [place] and [place]. This disclosure is being madepursuant to the Care Everywhere program and may not contain all information available regarding this patient. Last updated 18.[facility] [employer] Allergies No known active allergies Medications * Be aware that medications may not be up to date on this document. Alwaysverify current medications with the patient. * HYDROcodone-acetaminophen (NORCO) 5-325 MG tablet(Started 12/18/2019) Take 1 tablet by mouth every 6 hours as needed Dx M51.26 The patient has 3 separate Rx; 2 post dated as allowed by law. 3 Mo of RX do NOT DELETE * HYDROcodone-acetaminophen (NORCO) 5-325 MG tablet(Started 05/21/2021) Take 1 (one) tablet by mouth every 6 hours as needed Dx: M51.26 * HYDROcodone-acetaminophen (NORCO) 5-325 MG tablet(Started 05/14/2021) Take 1 (one) tablet by mouth every 6 hours as needed Dx M51.26 * naproxen (NAPROSYN) 500 MG tablet(Started 05/14/2021) Take 1 (one) tablet by mouth 2 times daily 5 refills by 05/14/2022 * predniSONE (DELTASONE) 10 MG tablet(Started 06/18/2021) 4 qd x 2 days, pc then 1 less pill every 2 days until gone * tiZANidine (ZANAFLEX) 4 MG tablet(Started 06/18/2021) Take 1 (one) tablet to 2 (two) tablets by mouth every 8 hours as needed for Muscle Spasms 3 refills by 06/18/2022 * oxyCODONE-acetaminophen (PERCOCET) 7.5-325 MG tablet(Started 06/18/2021) Take 1 (one) tablet by mouth every 6 hours as needed for Pain * gabapentin (Neurontin) 300 MG capsule(Started 06/08/2022) Take 1 (one) capsule by mouth 3 times daily * magnesium gluconate (Mag-G) 500 (27 Mg) MG tablet(Started 06/17/2022) Take 1 (one) tablet by mouth 2 times daily 5 refills by 06/17/2023 * meclizine (Antivert) 25 MG tablet(Started 06/17/2022) Take 1 (one) tablet by mouth 4 times daily as needed for Dizziness 5 refills by 06/17/2023 * lisinopril (Prinivil; Zestril) 20 MG tablet(Started 06/23/2022) TAKE 1 TABLET BY MOUTH EVERY DAY 5 refills by 06/23/2023 Active Problems Problem Noted Date Diagnosed Date Pain medication agreement signed 01/04/2019 Mixed hyperlipidemia 01/04/2019 Elevated blood pressure read ing without diagnosis of hypertension 01/26/2018 Arthritis of hand 08/12/2017 Sciatica of right side 02/03/2017 Diverticulosis of large intestine without hemorr boaz 08/13/2015 Sciatica 05/06/2015 Hyperlipidemia with target LDL less than 100 Degeneration of lumbar or lumbosacral interverte bral disc 03/29/2012 Herniated lumbar intervertebral disc 03/29/2012 Resolved Problems Problem Noted Date Diagnosed Date Resolved Date Sciatica 03/29/2012 05/06/2015 Social History Tobacco Use Types Packs/Day Years Used Date Smoking Tobacco: Never Smokeless Tobacco: Never Tobacco Cessation:Counseling Given: Not Answered Alcohol Use Standard Drinks/Week Comments Yes 2 (1 standard drink = 0.6 oz pur e alcohol) beer rarely PHQ-2 Answer Date Recorded PHQ2 TOTAL SCORE 0 06/17/2022 Sex and Gender Information Value Date Recorded Sex Assigned at Not on file Gender Identity Not on file Sexual Orientation Not on file Last Filed Vital Signs Vital Sign Reading Time Taken Comments Blood Pressure 136/86 06/17/2022 4:23 PM CAGER OPERATOR Pulse 76 06/17/2022 2:51 PM CAGER OPERATOR Temperature 36.6 C (97.9 F) 06/17/2022 2:51 PM CAGER OPERATOR Respiratory Rate 16 07/08/2015 9:30 AM CAGER OPERATOR Oxygen Saturation 98% 06/17/2022 2:51 PM CAGER OPERATOR Inhaled Oxygen Concentration - - Weight 96.6 kg (213 lb) 06/17/2022 2:51 PM CAGER OPERATOR Height 182.9 cm (6') 06/17/2022 2:51 PM CAGER OPERATOR Body Mass Index 28.89 06/17/2022 2:51 PM CAGER OPERATOR Procedures * VAS CAROTID DUPLEX BILATERAL(Performed 08/25/2022) Performed for Vertigo, Slurred speech * MRI BRAIN WO CONTRAST(Performed 08/25/2022) Performed for Vertigo, Slurred speech * C-REACTIVE PROTEIN(Performed 11/18/2021) * RHEUMATOID FACTOR BLOOD QUANTITATIVE(Performed 11/18/2021) * ESTEE BLOOD SCREEN W/REFLEX TITER(Performed 11/18/2021) * CBC W AUTO DIFFERENTIAL(Performed 11/18/2021) * COMPREHENSIVE METABOLIC PANEL(Performed 11/18/2021) * LIPID PROFILE(Performed 11/18/2021) * IMAGING/RADIOLOGY/XRAY RESULTS ORDER(Performed 08/05/2021) * IMAGING/RADIOLOGY/XRAY RESULTS ORDER(Performed 06/27/2021) * XR WRIST LEFT 3VW OR MORE(Performed 06/18/2021) Performed for Left wrist pain * XR CERVICAL SPINE 2 OR 3VW(Performed 06/18/2021) Performed for Neck sprain, initial encounter * PATHOLOGY/CYTOLOGY REPORT ORDER(Performed 07/30/2020) * VITAMIN D 25-HYDROXY(Performed 10/11/2019) * PROSTATE SPECIFIC ANTIGEN SCREEN(Performed 10/11/2019) * CBC W AUTO DIFFERENTIAL(Performed 10/11/2019) * COMPREHENSIVE METABOLIC PANEL(Performed 10/11/2019) * LIPID PROFILE(Performed 10/11/2019) * PATHOLOGY/CYTOLOGY REPORT ORDER(Performed 09/29/2019) * XR LUMBAR SPINE 4VW OR MORE(Performed 05/31/2019) Performed for Herniated lumbar intervertebral disc, Bilateral sciatica, Sciatica of right side * VITAMIN D 25-HYDROXY(Performed 08/10/2017) * PROSTATE SPECIFIC ANTIGEN SCREEN(Performed 08/10/2017) * CBC W AUTO DIFFERENTIAL(Performed 08/10/2017) * URINALYSIS W/MICROSCOPIC NO CULTURE(Performed 08/10/2017) * COMPREHENSIVE METABOLIC PANEL(Performed 08/10/2017) * LIPID PROFILE(Performed 08/10/2017) * COLONOSCOPY SCREEN(Performed 07/08/2015) * ENDOSCOPY, COLON, SCREENING(Performed 07/08/2015) * VITAMIN D 25-HYDROXY(Performed 03/30/2014) * PROSTATE SPECIFIC ANTIGEN SCREEN(Performed 03/30/2014) * URINALYSIS REFLEX TO MICROSCOPIC NO CULTURE(Performed 03/30/2014) * COMPREHENSIVE METABOLIC PANEL(Performed 03/30/2014) * LIPID PROFILE(Performed 03/30/2014) Results * VAS CAROTID DUPLEX BILATERAL (08/25/2022 2:22 PM CAGER OPERATOR) Anatomical Region Laterality Modality Neck Ultrasound 08/25/2022 1:54 PM CAGER OPERATOR Narrative Procedure Note Erasto Yao MD - 08/25/2022 [place] [address] Carotid Duplex Report Pat.Name: REGGIE RUANO Pat.ID: [id number] .Date: 08/25/2022 Exam Time: 1:54:00 PM Study Type:Carotid Age: 9 1960,62Y Sex: MALE Sonogrphr: Kaden Bello RVT Pat. Stat.:Outpatient Reason for Study: R42 Vertigo, R47.81 Slurred speech Procedures: Carotid Duplex - Bilateral Race: [facility] Visit ID: [id number] ++++++++++++++++++++++++++++++++++++ SUMMARY: ++++++++++++++++++++++++++++++++++++ There are no hemodynamically significant stenoses in either the right or left extracranial carotid arterial system. There is normal antegrade flow in both vertebral arteries. ++++++++++++++++++++++++++++++++++++ FINDINGS: ++++++++++++++++++++++++++++++++++++ Procedure: The extracranial carotid systems were examined bilaterally with duplex and color flow imaging as well as spectral Doppler analysis. Study Quality: This study is of adequate technical quality. Rt Bulb: No obvious plaquing seen. Rt ICA: No obvious plaquing seen. Internal carotid artery within normal limits. Rt Vert: Antegrade flow within the right vertebral Artery. Lt Bulb: No obvious plaquing seen. Lt ICA: No obvious plaquing seen. Internal carotid artery within normal limits. Lt Vert: Antegrade flow within the left vertebral Artery. Carotid Findings: Right Left Verteb.Flw Antegrade Antegrade ++++++++++++++++++++++++++++++++++++ MEASUREMENTS: ++++++++++++++++++++++++++++++++++++ DOPPLER Left CCA Dist CCA Dist PSV 85.5 cm/s CCA Dist EDV 26.6 cm/s Left CCA Mid CCA Mid PSV 109 cm/s CCA Mid EDV 35.7 cm/s Left CCA Prox CCA Prox PSV 121 cm/s CCA Prox EDV 27.3 cm/s Left ECA ECA PSV 69.6 cm/s ECA EDV 14.9 cm/s Left ICA Dist ICA Dist PSV 72.7 cm/s ICA Dist EDV 34.2 cm/s Left ICA Prox ICA Prox PSV 74.6 cm/s ICA Prox EDV 34.2 cm/s Left ICA/CCA ICA/CCA PSV 0.68 Left Vertebral Vertebral PSV 64 cm/s Vertebral EDV 19.9 cm/s Right CCA Dist CCA Dist PSV 74.6 cm/s CCA Dist EDV 26.7 cm/s Right CCA Mid CCA Mid PSV 78.9 cm/s CCA Mid EDV 21.1 cm/s Right CCA Prox CCA Prox PSV 70.2 cm/s CCA Prox EDV 20.5 cm/s Right ECA ECA PSV 86.9 cm/s ECA EDV 21 cm/s Right ICA Dist ICA Dist PSV 71.4 cm/s ICA Dist EDV 36.7 cm/s Right ICA Prox ICA Prox PSV 68.3 cm/s ICA Prox EDV 31.7 cm/s Right ICA/CCA ICA/CCA PSV 0.87 Right Vertebral Vertebral PSV 45.4 cm/s Vertebral EDV 19.9 cm/s Signed 08/25/2022 03:18 PM Erasto Yao MD Everardo Li DO VASCULAR LAB ORDERAB LES * MRI BRAIN WO CONTRAST (08/25/2022 1:34 PM CAGER OPERATOR) Anatomical Region Laterality Modality Head Magnetic Resonan ce 08/25/2022 1:38 PM CAGER OPERATOR Impressions 08/25/2022 1:42 PM CAGER OPERATOR IMPRESSION: No acute intracranial process Chronic periventricular/subcortical white matter microvascular ischemic change > Interpreting Provider: Carlos Baker JR, MD on 08/25/2022 1:42 PM Narrative 08/25/2022 1:42 PM CAGER OPERATOR EXAM: MRI brain without contrast INDICATION: R42: Dizziness and giddiness R47.81: Slurred speech COMPARISON: None TECHNIQUE: Multiplanar, multisequence magnetic resonance imaging of the brain performed without contrast FINDINGS: There is no restricted diffusion to suggest hyperacute/acute ischemia or cytotoxic edema. There is no evidence of mass, mass effect, midline shift, hemorrhage or acute/subacute focal infarct. There is no epidural or subdural hematoma. The ventricles and cisterns are normal in size and configuration. Bilateral cerebellar pontine angles and internal auditory canals are unremarkable. The paranasal sinuses are unremarkable. There are a few very tiny, very subtle signal intensities in the periventricular/subcortical white matter bilaterally on the T2 and FLAIR sequences in a pattern most consistent with mild chronic microvascular ischemic change. Procedure Note Carlos Baker MD - 08/25/2022 EXAM: MRI brain without contrast INDICATION: R42: Dizziness and giddiness R47.81: Slurred speech COMPARISON: None TECHNIQUE: Multiplanar, multisequence magnetic resonance imaging of the brain performed without contrast FINDINGS: There is no restricted diffusion to suggest hyperacute/acute ischemia or cytotoxic edema. There is no evidence of mass, mass effect, midlineshift, hemorrhage or acute/subacute focal infarct. There is no epidural or subdural hematoma. The ventricles and cisterns are normal in size and configuration. Bilateral cerebellar pontine angles and internal auditory canals are unremarkable. The paranasal sinuses are unremarkable. There are a few very tiny, very subtle signal intensities in the periventricular/subcortical white matter bilaterally on the T2 and FLAIR sequences in a pattern most consistent with mild chronic microvascular ischemic change. IMPRESSION: No acute intracranial process Chronic periventricular/subcortical white matter microvascular ischemic change > Interpreting Provider: Carlos Baker JR, MD on 08/25/2022 1:42 PM Everardo Li DO MR ORDERABLES * RHEUMATOID FACTOR BLOOD QUANTITATIVE (11/18/2021 8:46 AM CDT) Rheumatoid Factor <14 <14 IU/mL [facility] Comment: Test Performed at: [facility] [address] SAKINA NAVARRO DO,MPH 11/18/2021 8:46 AM CDT 11/18/2021 8:46 AM CDT Everardomeryl Li LAB - CHEMISTRY ORDMemphis [address] [employer] Organization DEANAGROUNDFLOOR Performing Organization Address [facility] de Phone Number [facility] [address] [place] [address] * C-REACTIVE PROTEIN (11/18/2021 8:46 AM CDT) C-Reactive Protein 1.8 <8.0 mg/L [facility] Comment: REPORT COMMENT: FASTING:YES Test Performed at: [employer] [id number] [place] [address] SAKINA NAVARRO DO,MPH 11/18/2021 8:46 AM CDT 11/18/2021 8:46 AM CDT Everardo Sanchez Guillermo DINH LAB - CHEMISTRY ORDMike LEBLANCGROUNDFLOOR Performing Organization Address [facility] Co de Phone Number [facility] [address] [place] [address] * ESTEE BLOOD SCREEN W/REFLEX TITER (11/18/2021 8:46 AM CDT) [facility] ESTEE Screen NEGATIVE NEGATIVE [facility] Comment: ESTEE IFA is a first line screen for detecting the presence of up to approximately 150 autoantibodies in various autoimmune diseases. A negative ESTEE IFA result suggests an ESTEE-associated autoimmune disease is not present at this time, but is not definitive. If there is high clinical suspicion for Sjogren's syndrome, testing for anti-SS-A/Ro antibody should be considered. Anti-Olga-1 antibody should be considered for clinically suspected inflammatory myopathies. AC-0: Negative International Consensus on ESTEE Patterns (https://doi.org/10.1515/aunk-0237-6756) For additional information, please refer to http://education.AppLift/faq/HSU744 (This link is being provided for informational/ educational purposes only.) Test Performed at: [employer] [address] [place] [address] SAKINA NAVARRO DO,MPH 11/18/2021 8:46 AM CDT 11/18/2021 8:46 AM CDT Everardo Li DO LAB - CHEMISTRY NBA RUIZ [facility] Organization Address City/State/ZIP Co de Phone Number [place] [address] [place] [address] * CBC WITH DIFFERENTIAL (11/18/2021 8:46 AM CDT) Only the most recent of3 resultswithin the time period is included. [facility] White Blood Cell Count 7.5 3.8 - 10.8 Thousand/u L [facility] RBC 5.00 4.20 - 5.80 Million/uL [facility] Hemoglobin 14.9 13.2 - 17.1 g/dL [facility] Hematocrit 45.2 38.5 - 50.0 % [facility] MCV 90.4 80.0 - 100.0 fL [facility] MCH 29.8 27.0 - 33.0 pg [facility] MCHC 33.0 32.0 - 36.0 g/dL [facility] RDW 12.0 11.0 - 15.0 % [facility] Platelet Count 203 140 - 400 Thousand/u L [facility] MPV 12.3 7.5 - 12.5 fL [facility] Neutrophil Absolute 5363 1500 - 7800 cells/uL [facility] Lymphocytes Absolute 1283 850 - 3900 cells/uL [facility] Absolute Monocytes 615 200 - 950 cells/uL [facility] Eosinophils Absolute 173 15 - 500 cells/uL [facility] Basophils Absolute 68 0 - 200 cells/uL [facility] Granulocytes % 71.5 % [facility] Lymphocytes % 17.1 % [facility] Monocytes % 8.2 % [facility] Eosinophils % 2.3 % [facility] Basophils % 0.9 % [facility] Comment: Test Performed at: [employer] [address] [place] [address] SAKINA NAVARRO DO,MPH 11/18/2021 8:46 AM CDT 11/18/2021 8:46 AM CDT Everardo Li DO LAB - HEMATOLOGY ORD ERABLES [facility] [address] [place] [address] * COMPREHENSIVE METABOLIC PANEL (11/18/2021 8:46 AM CDT) Only the most recent of4 resultswithin the time period is included. Glucose 92 65 - 99 mg/dL [facility] Comment: Fasting reference interval BUN 25 7 - 25 mg/dL [facility] Creatinine 1.13 0.70 - 1.25 mg/dL [facility] Comment: For patients >49 years of age, the reference limit for Creatinine is approximately 13% higher for people identified as -Jordanian. eGFR by MDRD 70 > OR = 60 mL/min/1 .73m2 [facility] eGFR by MDRD 81 > OR = 60 mL/min/1 .73m2 [facility] BUN/Creatinine Ratio NOT APPLICABLE 6 - 22 (calc) [facility] Sodium 141 135 - 146 mmol/L [facility] Potassium 4.7 3.5 - 5.3 mmol/L [facility] Chloride 106 98 - 110 mmol/L [facility] CO2 27 20 - 32 mmol/L [facility] Calcium 9.7 8.6 - 10.3 mg/dL [facility] Protein Total 6.5 6.1 - 8.1 g/dL [facility] Albumin 4.1 3.6 - 5.1 g/dL [facility] Globulin Total 2.4 1.9 - 3.7 g/dL (calc) [facility] Albumin/Globulin Ratio 1.7 1.0 - 2.5 (calc) [facility] Bilirubin Total 0.5 0.2 - 1.2 mg/dL [facility] Alkaline Phosphatase 60 35 - 144 U/L [facility] AST 22 10 - 35 U/L [facility] ALT 19 9 - 46 U/L [facility] Comment: Test Performed at: [employer] [address] [place] [address] SAKINA NAVARRO DO,MPH 11/18/2021 8:46 AM CDT 11/18/2021 8:46 AM CDT Everardo G Guillermo LAB - CHEMISTRY CHRISTOPHERE SARA [facility] [address] [place] [address] * LIPID PROFILE (11/18/2021 8:46 AM CDT) Only the most recent of4 resultswithin the time period is included. Cholesterol 172 <200 mg/dL [facility] HDL Cholesterol 57 > OR = 40 mg/dL [facility] Triglycerides 105 <150 mg/dL [facility] LDL Calculated 95 mg/dL (calc) [facility] Comment: Reference range: <100 Desirable range <100 mg/dL for primary prevention; <70 mg/dL for patients with CHD or diabetic patients with > or = 2 CHD risk factors. LDL-C is now calculated using the Scar-Karl calculation, which is a validated novel method providing better accuracy than the Friedewald equation in the estimation of LDL-C. Scar MENDEZ et al. SELWYN. 2013;310(19): 3012-2699 (http://education.RFMicron.Bouf/faq/JLO601) CHOL/HDLC RATIO 3.0 <5.0 (calc) [facility] Non HDL Cholesterol 115 <130 mg/dL (calc) [facility] Comment: For patients with diabetes plus 1 major ASCVD risk factor, treating to a non-HDL-C goal of <100 mg/dL (LDL-C of <70 mg/dL) is considered a therapeutic option. Test Performed at: [email or web address] [facility]ITAL[facility] [address] [place] [address] SAKINA NAVARRO DO,MPH 11/18/2021 8:46 AM CDT 11/18/2021 8:46 AM CDT Everardo G Guillermo DINH LAB - CHEMISTRY NBA RUIZ [facility] [address] [place] [address] * IMAGING RADIOLOGY XRAY RESULTS ORDER (08/05/2021) Only the most recent of2 resultswithin the time period is included. Anatomical Region Laterality Modality Other 08/05/2021 Narrative 08/05/2021 Ordered by an unspecified provider. Scanned Document IMAGING * XR WRIST LEFT 3VW OR MORE (06/18/2021 12:00 PM CAGER OPERATOR) Anatomical Region Laterality Modality Wrist / Hand Radiographic Catarina ging 06/18/2021 3:40 PM CAGER OPERATOR Narrative 06/18/2021 4:26 PM CAGER OPERATOR 3 VIEWS LEFT WRIST INDICATION: Chronic worsening left wrist pain. FINDINGS: Moderate to severe radial scaphoid joint space narrowing. Chronic subchondral sclerosis within the proximal pole of the scaphoid. Cortical irregularity with a small cortical erosion noted at the radial aspect of the scaphoid. This finding can be seen in chronic de Quervain's tenosynovitis. This can be confirmed with MRI. Widening of the scapholunate space. This may indicate chronic sprain of the scapholunate interosseous ligament. Tiny radiodensity overlying the base of the second metacarpal may indicate a small foreign body. No evidence of acute fracture. No evidence of acute bone destruction. Edited by Piedad Mahajan on 06/18/2021 3:45 PM *Reading Radiologist: Jennifer Carter on 06/18/2021 at 4:26 PM Procedure Note Jennifer Carter MD - 06/18/2021 3 VIEWS LEFT WRIST INDICATION: Chronic worsening left wrist pain. FINDINGS: Moderate to severe radial scaphoid joint space narrowing. Chronic subchondral sclerosis within the proximal pole of the scaphoid. Cortical irregularity with a small cortical erosion noted at the radial aspect of the scaphoid. This finding can be seen in chronic de Quervain's tenosynovitis. This can be confirmed with MRI. Widening of the scapholunate space. This may indicate chronic sprain of the scapholunate interosseous ligament. Tiny radiodensity overlying the base of the second metacarpal may indicate a small foreign body. No evidence of acute fracture. No evidence of acute bone destruction. Edited by Piedad Mahajan on 06/18/2021 3:45 PM *Reading Radiologist: Jennifer Carter on 06/18/2021 at 4:26 PM Everardo G Guillermo DO DIAGNOSTIC IMAGING O RDERABLES * XR CERVICAL SPINE 2 OR 3VW (06/18/2021 12:00 PM CAGER OPERATOR) Anatomical Region Laterality Modality Spine Radiographic Catarina ging 06/18/2021 12:0 6 PM CAGER OPERATOR Impressions 06/18/2021 12:08 PM CAGER OPERATOR Multilevel cervical spondylitic changes. Anterolisthesis of C3 upon C4 secondary to facet joint arthrosis. Degenerative changes are greater C4-5 and C5-6. *Reading Radiologist: Heri Lechuga on 06/18/2021 at 12:08 PM Narrative 06/18/2021 12:08 PM CAGER OPERATOR Cervical spine 3 views HISTORY: Neck pain x5 days no injury FINDINGS: Degenerative changes and posterior endplate spurring C5-6. Anterolisthesis C4 upon C5 with mild degenerative changes. Facet arthropathy C4-5. Disc space height loss with small posterior endplate spurs as well as small anterior endplate spurs C6-7. Half millimeter anterolisthesis secondary to facet joint arthrosis C7-T1. The prevertebral soft tissues are normal. The lateral masses of C1 and C2 are aligned. Facet arthropathy at multiple levels including right C3-4 and C4-5. Uncovertebral joint spurs C5-6. Procedure Note Heri Lechuga MD - 06/18/2021 Cervical spine 3 views HISTORY: Neck pain x5 days no injury FINDINGS: Degenerative changes and posterior endplate spurring C5-6. Anterolisthesis C4 upon C5 with mild degenerative changes. Facet arthropathy C4-5. Disc space height loss with small posterior endplate spurs as well as small anterior endplate spurs C6-7. Half millimeter anterolisthesis secondary to facet joint arthrosis C7-T1. The prevertebral soft tissues are normal. The lateral masses of C1 and C2 are aligned. Facet arthropathy at multiple levels including right C3-4 and C4-5. Uncovertebral joint spurs C5-6. IMPRESSION Multilevel cervical spondylitic changes. Anterolisthesis of C3 upon C4 secondary to facet joint arthrosis. Degenerative changes are greater C4-5 and C5-6. *Reading Radiologist: Heri Lechuga on 06/18/2021 at 12:08 PM Everardo Li DO DIAGNOSTIC IMAGING O RDERABLES * PATHOLOGY/CYTOLOGY REPORT ORDER (07/30/2020) Only the most recent of2 resultswithin the time period is included. Provider Unknown LAB - PATHOLOGY/CYTO LOGY ORDERABLES * VITAMIN D 25-HYDROXY (10/11/2019 9:44 AM CAGER OPERATOR) Only the most recent of3 resultswithin the time period is included. Vitamin D, 25 Hydroxy 30 30 - 100 ng/mL [facility] Comment: Vitamin D Status 25-OH Vitamin D: Deficiency: <20 ng/mL Insufficiency: 20 - 29 ng/mL Optimal: > or = 30 ng/mL For 25-OH Vitamin D testing on patients on D2-supplementation and patients for whom quantitation of D2 and D3 fractions is required, the QuestAssureD(TM) 25-OH VIT D, (D2,D3), LC/MS/MS is recommended: order code 98071 (patients >2yrs). For more information on this test, go to: http://education.Intercast Networks/faq/TPE977 (This link is being provided for informational/educational purposes only.) REPORT COMMENT: FASTING:YES Test Performed at: [facility] [address] [place] [place] [address] SAKINA NAVARRO DO,MPH 10/11/2019 9:44 AM CAGER OPERATOR 10/11/2019 9:41 AM CAGER OPERATOR Everardo Li DO LAB - CHEMISTRY NBA RUIZ [facility] [address] [place] [address] * PROSTATE SPECIFIC ANTIGEN SCREEN (10/11/2019 9:44 AM CAGER OPERATOR) Only the most recent of3 resultswithin the time period is included. PSA 1.0 < OR = 4.0 ng/mL [facility] Comment: The total PSA value from this [...] of the presence or absence of disease. Test Performed at: [facility] [place] [address] SAKINA NAVARRO DO,MPH 10/11/2019 9:44 AM CAGER OPERATOR 10/11/2019 9:41 AM CAGER OPERATOR Everardo Li DO LAB - [facility]MISTRY [facility] [place] [address] [place] [address] * XR LUMBAR SPINE 4VW OR MORE (05/31/2019) Anatomical Region Laterality Modality Spine Other Everardo Li DO DIAGNOSTIC IMAGING O RDERABLES * URINALYSIS COMPLETE W MICROSCOPIC (08/10/2017 11:26 AM CAGER OPERATOR) Color UA YELLOW YELLOW [facility] Appearance CLEAR CLEAR [facility] Specific [place] UA 1.018 1.001 - 1.035 [facility] pH UA < OR = 5.0 5.0 - 8.0 [facility] Glucose UA NEGATIVE NEGATIVE [facility] Bilirubin UA NEGATIVE NEGATIVE [facility] Ketone UA NEGATIVE NEGATIVE [facility] Blood UA NEGATIVE NEGATIVE [facility] Protein UA NEGATIVE NEGATIVE [facility] Nitrite UA NEGATIVE NEGATIVE [facility] Leukocyte UA NEGATIVE NEGATIVE [facility] WBC UA NONE SEEN < OR = 5 /HPF [facility] RBC UA NONE SEEN < OR = 2 /HPF [facility] Epithelial Cell UA NONE SEEN < OR = 5 /HPF [facility] Bacteria UA NONE SEEN NONE SEEN /HPF [facility] Hyaline Casts NONE SEEN NONE SEEN /LPF [facility] Comment: Test Performed at: [facility] [place] [address] SAKINA NAVARRO DO,MPH 08/10/2017 11:2 6 AM CAGER OPERATOR 08/10/2017 11:30 AM CAGER OPERATOR Everardo Li DO LAB - URINALYSIS ORD ERABLES [facility] [address] [place] [address] * ENDOSCOPY, COLON, SCREENING (07/08/2015 8:59 AM CAGER OPERATOR) Report Endoscopy POC _ Patient Name: Reggie Ruano Procedure Date: 07/08/2015 8:59 AM Date of : 1960 Admit Type: Outpatient Age: 55 Gender: Male Attending MD: Kary Valera DO _ Procedure: Colonoscopy Indications: Screening for colorectal malignant neoplasm Providers: Kary Valera DO (Doctor) Referring MD: Everardo Li DO (Referring MD) Medicines: Sedation Required Anesthesia Staff Assistance Complications: No immediate complications. _ Procedure: Pre-Anesthesia Assessment: - ASA Grade Assessment: II - A patient with mild systemic disease. After I obtained informed consent, the scope was passed under direct vision. Throughout the procedure, the patient's blood pressure, pulse, and oxygen saturations were monitored continuously. The Colonoscope was introduced through the anus and advanced to the cecum, identified by appendiceal orifice and ileocecal valve. The colonoscopy was performed without difficulty. The patient tolerated the procedure well. The quality of the bowel preparation was good. Findings: A few small-mouthed diverticula were found in the sigmoid colon. Internal hemorrhoids were found during retroflexion. The hemorrhoids were mild. _ Impression: - Diverticulosis in the sigmoid colon. - Internal hemorrhoids. - No specimens collected. Recommendation: - Repeat colonoscopy in 10 years for surveillance. Procedure Code(s): --- Professional --- G0121, Colorectal cancer screening; colonoscopy on individual not meeting criteria for high risk --- Technical --- G0121, Colorectal cancer screening; colonoscopy on individual not meeting criteria for high risk Diagnosis Code(s): --- Professional --- Z12.11, Encounter for screening for malignant neoplasm of colon K64.8, Other hemorrhoids K57.30, Diverticulosis of large intestine without perforation or abscess without bleeding --- Technical --- Z12.11, Encounter for screening for malignant neoplasm of colon K64.8, Other hemorrhoids K57.30, Diverticulosis of large intestine without perforation or abscess without bleeding CPT copyright 2014 [employer]. All rights reserved. The codes documented in this report are preliminary and upon second hand paper machine review may be revised to meet current compliance requirements. ___ Kary Valera DO 07/08/2015 9:19:14 AM This report has been signed electronically. Number of Addenda: 0 Note Initiated On: 07/08/2015 8:59 AM [facility] ENDOSCOPY 07/08/2015 8:59 AM CAGER OPERATOR Kary Valera DO GI PROCEDURE ORDERAB LES [facility] [place] [address] * URINALYSIS ROUTINE AUTO (03/30/2014 12:08 PM CDT) Color UA DARK YELLOW YELLOW [facility] Appearance CLEAR CLEAR [facility] Specific [place] UA 1.024 1.001 - 1.035 [facility] pH UA 5.0 5.0 - 8.0 [facility] Glucose UA NEGATIVE NEGATIVE [facility] Bilirubin UA NEGATIVE NEGATIVE [facility] Ketone UA NEGATIVE NEGATIVE [facility] Blood UA NEGATIVE NEGATIVE [facility] Protein UA NEGATIVE NEGATIVE [facility] Nitrite UA NEGATIVE NEGATIVE [facility] Leukocyte UA NEGATIVE NEGATIVE [facility] WBC UA NONE SEEN < OR = 5 /HPF [facility] RBC UA NONE SEEN < OR = 3 /HPF [facility] Epithelial Cell UA NONE SEEN < OR = 5 /HPF [facility] Bacteria UA NONE SEEN NONE SEEN /HPF [facility] Hyaline Casts NONE SEEN NONE SEEN /LPF [facility] Comment: Test Performed at: [facility] [address] [place] [address] SAKINA NAVARRO DO,MPH 03/30/2014 12:0 8 PM CDT 03/30/2014 12:10 PM CDT Everardo Li DO LAB - URINALYSIS ORD ERABLES [facility] [address] [place] [address] Care Teams Life Scientist Relationship Specialty Start Date End Date PcpMay PCP - General 02/11/23
--- OUTSIDE RECORDS SUMMARY | 2024-09-22 02:26 | XMS_ITS | Encounter Summary ---
Author Organization [facility] Address 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
--- OUTSIDE RECORDS SUMMARY | 2024-09-22 02:26 | XMS_ITS | Encounter Summary ---
Author Organization [facility] Address 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
--- OUTSIDE RECORDS SUMMARY | 2024-09-22 02:26 | XMS_ITS | Encounter Summary ---
Author Organization [facility] Address 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
--- OUTSIDE RECORDS SUMMARY | 2024-09-22 02:26 | XMS_ITS | Encounter Summary ---
Author Organization [facility] Address 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
--- OUTSIDE RECORDS SUMMARY | 2024-09-22 02:26 | XMS_ITS | Clinical Summary ---
Author Organization [facility] Address [address] [place] [address] Care Team Providers Care Front Office Specialist Name Role Phone PcpMay Primary Care Provider Unav ailable Source Comments [facility],non-owned Affiliates and Associated Physician Practices is amultiple site organization consisting of ambulatory clinics and hospital sitesin [place], [place], [place] and [place]. This disclosure is being madepursuant to the Care Everywhere program and may not contain all information available regarding this patient. Last updated 18.[facility] Allergies No known active allergies Medications * Be aware that medications may not be up to date on this document. Alwaysverify current medications with the patient. Medication Sig Dispensed Refills Start Date End Date Status HYDROcodone-acetami nophen (NORCO) 5-325 MG tablet Take 1 tablet by mouth every 6 hours as needed Dx M51.26 The patient has 3 separate Rx; 2 post dated as allowed by law. 3 Mo of RX do NOT DELETE 120 tablet 12/18/2019 Active HYDROcodone-acetami nophen (NORCO) 5-325 MG tablet Take 1 (one) tablet by mouth every 6 hours as needed Dx: M51.26 120 tablet 05/21/2021 Active HYDROcodone-acetami nophen (NORCO) 5-325 MG tablet Take 1 (one) tablet by mouth every 6 hours as needed Dx M51.26 42 tablet 05/14/2021 Active naproxen (NAPROSYN) 500 MG tablet Take 1 (one) tablet by mouth 2 times daily 60 tablet 5 05/14/2021 Active predniSONE (DELTASONE) 10 MG tablet 4 qd x 2 days, pc then 1 less pill every 2 days until gone 20 tablet 06/18/2021 Active tiZANidine (ZANAFLEX) 4 MG tablet Take 1 (one) tablet to 2 (two) tablets by mouth every 8 hours as needed for Muscle Spasms 30 tablet 3 06/18/2021 Active oxyCODONE-acetamino phen (PERCOCET) 7.5-325 MG tablet Take 1 (one) tablet by mouth every 6 hours as needed for Pain 40 tablet 06/18/2021 Active gabapentin (Neurontin) 300 MG capsule Take 1 (one) capsule by mouth 3 times daily 06/08/2022 Active magnesium gluconate (Mag-G) 500 (27 Mg) MG tablet Take 1 (one) tablet by mouth 2 times daily 60 tablet 5 06/17/2022 Active meclizine (Antivert) 25 MG tablet Take 1 (one) tablet by mouth 4 times daily as needed for Dizziness 30 tablet 5 06/17/2022 Active lisinopril (Prinivil; Zestril) 20 MG tablet TAKE 1 TABLET BY MOUTH EVERY DAY 30 tablet 5 06/23/2022 Active Active Problems Problem Noted Date Diagnosed Date Pain medication agreement signed 01/04/2019 Mixed hyperlipidemia 01/04/2019 Elevated blood pressure read ing without diagnosis of hypertension 01/26/2018 Arthritis of hand 08/12/2017 Sciatica of right side 02/03/2017 Diverticulosis of large intestine without hemorr boaz 08/13/2015 Sciatica 05/06/2015 Hyperlipidemia with target LDL less than 100 Overview (06/16/2015): Degeneration of lumbar or lumbosacral interverte bral disc 03/29/2012 Herniated lumbar intervertebral disc 03/29/2012 Resolved Problems Problem Noted Date Diagnosed Date Resolved Date Sciatica 03/29/2012 05/06/2015 Encounters Date Type Department Care Team Description 07/12/2024 Telephone [facility] [address] [address], [address] [place] [address] Pcp, May Garcia Scheduling from Last 3 Months Family History Medical History Relation Name Comments Negative Family History Other Relation Name Status Comments Brother Alive Father (Age 73) Mother Alive Other Sister 1 Alive Sister 2 Alive Sister 3 (Age 16) MVA Social History Tobacco Use Types Packs/Day Years [...] Comments Blood Pressure 136/86 06/17/2022 4:23 PM TEA BLENDER Pulse 76 06/17/2022 2:51 PM TEA BLENDER Temperature 36.6 C (97.9 F) 06/17/2022 2:51 PM TEA BLENDER Respiratory Rate 16 07/08/2015 9:30 AM TEA BLENDER Oxygen Saturation 98% 06/17/2022 2:51 PM TEA BLENDER Inhaled Oxygen Concentration - - Weight 96.6 kg (213 lb) 06/17/2022 2:51 PM TEA BLENDER Height 182.9 cm (6') 06/17/2022 2:51 PM TEA BLENDER Body Mass Index 28.89 06/17/2022 2:51 PM TEA BLENDER Plan of Treatment Health Maintenance Due Date Last Done Comments COLOGUARD (AGES 45-75) - COLON CA SCREENING 1961 CT COLONOGRAPHY - COLON CA SCREENING 1961 FIT - COLON CA SCREENING 1961 FLEX SIG - COLON CA SCREENING 1961 Opioid Medication Urine Drug Screening 1961 HIV SCREENING 1976 DTAP/TDAP/TD VACCINES (1 - Tdap) 1980 PNEUMOCOCCAL VACCINE 50+ (1 of 1 - PCV) 2011 ZOSTER VACCINE (1 of 2) 2011 COVID-19 VACCINE (1 - season) 2024 INFLUENZA VACCINE (#1) 2024 DEPRESSION SCREENING 08/09/2024 06/17/2022 SCREENING FOR DIABETES 11/18/2024 2, 10/11/2019, 08/10/2017, Additional history exists COLON MONITORING 07/08/2025 07/08/2015, 07/08/2015 COLONOSCOPY - COLON CA SCREENING 07/08/2025 07/08/2015, 07/08/2015 Colorectal Cancer Screening 07/08/2025 LIPID TESTING 11/18/2026 11/18/2021, 03/0 11/2019, 08/10/2017, Additional history exists Respiratory Syncytial Virus (RSV) Vaccine Pt: or over 60 yrs (1 - 1-dose 75+ series) 2036 HEPATITIS C SCREENING Addressed 11/01/2014 (Not Covered by Insurance) Overridden with the intention of not completing the topic HEPATITIS B VACCINE Aged Out No longe r eligible based on patient's age to complete this topic HIB VACCINE Aged Out No longer eligi ble based on patient's age to complete this topic HPV VACCINE Aged Out No longer eligi ble based on patient's age to complete this topic MENINGOCOCCAL (Group B) VACCINE Aged Out No longer eligible based on patient's age to complete this topic MENINGOCOCCAL VACCINE Aged Out No michelle gisselle eligible based on patient's age to complete this topic PNEUMOCOCCAL VACCINE Aged Out No long er eligible based on patient's age to complete this topic Procedures Procedure Name Priority Date/Time Associated Diagnosis Comments COMPREHENSIVE METABOLIC PANEL 11/18/2021 8:46 AM CDT LIPID PROFILE 11/18/2021 8:46 AM CDT ENDOSCOPY, COLON, SCREENING Routine 07/08/2015 8:59 AM TEA BLENDER from Last 3 Months or Most Recently Relevant to Health Maintenance Results * COMPREHENSIVE METABOLIC PANEL (11/18/2021 8:46 AM CDT) Glucose 92 65 - 99 mg/dL [facility] Comment: Fasting reference interval BUN 25 7 - 25 mg/dL [facility] Creatinine 1.13 0.70 - 1.25 mg/dL [facility] Comment: For patients >49 years of age, the reference limit for Creatinine is approximately 13% higher for people identified as -Malawian. eGFR by MDRD 70 > OR = [...] 46 U/L [facility] Comment: Test Performed at: [facility] [address] [place] [address] SAKINA NAVARRO DO,MPH 11/18/2021 8:46 AM CDT 11/18/2021 8:46 AM CDT Everardo Li DO LAB - CHEMISTRY ORDE SAAR Performing Organization Address City/State/[facility] Co de Phone Number [facility] [address] [place] [address] * LIPID PROFILE (11/18/2021 8:46 AM CDT) Cholesterol 172 <200 mg/dL [facility] HDL Cholesterol [...] LDL-C. Scar MENDEZ et al. SELWYN. 2013;310(19): 5401-7010 (http://education.fotopedia.Eayun/faq/UHX932) CHOL/HDLC RATIO 3.0 <5.0 (calc) [facility] Non HDL Cholesterol 115 <130 mg/dL (calc) [facility] Comment: For patients with diabetes plus 1 major ASCVD risk factor, treating to a non-HDL-C goal of <100 mg/dL (LDL-C of <70 mg/dL) is considered a therapeutic option. Test Performed at: [facility] [address] [address] SAKINA NAVARRO DO,MPH 11/18/2021 8:46 AM CDT 11/18/2021 8:46 AM CDT Everardo Li DO LAB - CHEMISTRY NBA [facility] [address] [place] [address] * ENDOSCOPY, COLON, SCREENING (07/08/2015 8:59 AM TEA BLENDER) Report Endoscopy POC _ Patient Name: Reggie [...] or abscess without bleeding CPT copyright 2014 [employer]. All rights reserved. The codes documented in this report are preliminary and upon manager inpatient review may be revised to meet current compliance requirements. ___ Kary Valera DO 07/08/2015 9:19:14 AM This report has been signed electronically. Number of Addenda: 0 Note Initiated On: 07/08/2015 8:59 AM [facility] ENDOSCOPY 07/08/2015 8:59 AM TEA BLENDER Kary Valera DO GI PROCEDURE ORDERAB L[place] [address] from Last 3 Months or Most Recently Relevant to Health Maintenance Care Teams Front Office Specialist Relationship Specialty Start Date End Date Pcp, May Garcia PCP - General 02/11/23
--- OUTSIDE RECORDS SUMMARY | 2024-09-22 02:26 | XMS_ITS | Encounter Summary ---
Author Organization [facility] Address 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
--- OUTSIDE RECORDS SUMMARY | 2024-09-22 02:26 | XMS_ITS | Encounter Summary ---
Author Organization [facility] Address 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
--- OUTSIDE RECORDS SUMMARY | 2024-09-22 02:26 | XMS_ITS | Referral Summary ---
Author Organization [facility] Address [address] [place] [address] Care Team Providers Care Baler Operator Name Role Phone Pcp, May Garcia Primary Care Provider Unav ailable Source Comments [facility],non-Formerly [facility] and Associated Physician Practices is amultiple site organization consisting of ambulatory clinics and hospital sitesin [place], [place], [place] and [place]. This disclosure is being madepursuant to the Care Everywhere program and may not contain all information available regarding this patient. Last updated 18.[facility] Encounters Date Type Department Care Team Description 07/12/2024 Telephone [facility] [address] [address], [address] [place] [address] Pcp, May Garcia Scheduling from Last 3 Months Allergies No known active allergies Medications * [...] Comments Blood Pressure 136/86 06/17/2022 4:23 PM CEREAL CHEMIST Pulse 76 06/17/2022 2:51 PM CEREAL CHEMIST Temperature 36.6 C (97.9 F) 06/17/2022 2:51 PM CEREAL CHEMIST Respiratory Rate 16 07/08/2015 9:30 AM CEREAL CHEMIST Oxygen Saturation 98% 06/17/2022 2:51 PM CEREAL CHEMIST Inhaled Oxygen Concentration - - Weight 96.6 kg (213 lb) 06/17/2022 2:51 PM CEREAL CHEMIST Height 182.9 cm (6') 06/17/2022 2:51 PM CEREAL CHEMIST Body Mass Index 28.89 06/17/2022 2:51 PM CEREAL CHEMIST Functional Status Functional Status Response Date of Assess ment Is person deaf or have serious hearing difficult y? No 07/08/2015 Is person blind or have serious difficulty seein g? No 07/08/2015 Does person have serious dif ficulty walking/climbing stairs? No 07/08/2015 Does person have difficulty dressing/bathing? No 07/08/2015 Does person have difficulty doing errands alone? No 07/08/2015 Cognitive Status Response Date of Assessm ent Does person have difficulty concentrating/remembering/making decisions? No 07/08/2015 Plan of Treatment Not on file Procedures Procedure Name Priority Date/Time Associated Diagnosis Comments COMPREHENSIVE METABOLIC PANEL 11/18/2021 8:46 AM CDT LIPID PROFILE 11/18/2021 8:46 AM CDT ENDOSCOPY, COLON, SCREENING Routine 07/08/2015 8:59 AM CEREAL CHEMIST from Last 3 Months or Most Recently [...] approximately 13% higher for people identified as -Ecuadorean. eGFR by MDRD 70 > OR = [...] 46 U/L [facility] Comment: Test Performed at: [facility] [address] [place] [address] SAKINA NAVARRO DO,MPH 11/18/2021 8:46 AM CDT 11/18/2021 8:46 AM CDT Everardo Li DO LAB - CHEMISTRY [facility] Organization Address City/State/[facility] Co de Phone Number [facility] [address] [place] [address] * LIPID PROFILE (11/18/2021 8:46 AM CDT) [...] factors. LDL-C is now calculated using the Tyra calculation, which is a validated novel method providing better accuracy than the Friedewald equation in the estimation of LDL-C. Scar SS et al. SELWYN. 2013;310(19): 7092-6349 (http://education.BMC Software.Dandelion/faq/FRN236) CHOL/HDLC RATIO 3.0 <5.0 (calc) [facility] Non HDL Cholesterol 115 <130 mg/dL (calc) [facility] Comment: For patients with diabetes plus 1 major ASCVD risk factor, treating to a non-HDL-C goal of <100 mg/dL (LDL-C of <70 mg/dL) is considered a therapeutic option. Test Performed at: [facility] [address] [place] [address] SAKINA NAVARRO DO,MPH 11/18/2021 8:46 AM CDT 11/18/2021 8:46 AM CDT Everardo Li DO LAB - CHEMISTRY NBA R[facility] [address] [place] [address] * ENDOSCOPY, COLON, SCREENING (07/08/2015 8:59 AM CEREAL CHEMIST) Report Endoscopy POC _ Patient Name: Reggie [...] or abscess without bleeding CPT copyright 2014 [employer]. All rights reserved. The codes documented in this report are preliminary and upon chief engineer production review may be revised to meet current compliance requirements. ___ Kary Valera DO 07/08/2015 9:19:14 AM This report has been signed electronically. Number of Addenda: 0 Note Initiated On: 07/08/2015 8:59 AM [facility] ENDOSCOPY 07/08/2015 8:59 AM CEREAL CHEMIST Kary Valera DO GI PROCEDURE ORDERAB LES [facility] [place] [address] from Last 3 Months or Most Recently Relevant to Health Maintenance Care Teams Baler Operator Relationship Specialty Start Date End Date Pcp, May Garcia PCP - General 02/11/23
--- NOTE | 2024-09-22 06:10 | ECG_ITS ---
Test Date: 2024-09-22 06:52:07 Measurements Intervals [place] Rate: 71 P: 30 IA: 189 QRS: -13 QRSD: 92 T: 23 QT: 380 QTc: 414 Interpretive Statements SINUS RHYTHM POSSIBLE RIGHT VENTRICULAR CONDUCTION DELAY CONSIDER INFERIOR INFARCT, AGE INDETERMINATE ABNORMAL ECG No previous ECG available for comparison Electronically Signed On 09-22-2024 06:57:11 MUSIC GRAPHER by Jesus Dupont D.O.
[2024-09-22] MEDS: LACTATED RINGERS 1,000 ML 30 ML IV CONT ×2 (06:30→09:15)
--- NOTE | 2024-09-22 06:32 | WPDANESEPPF ---
Anes - Initial Pre Proc Eval Procedure: Operation Date: 09/22/24 07:30 Proposed Procedures p Arthrodesis First Metatarsal Phalangeal Joint Left Foot, Sally Second Metatarsal Osteotomy Left Foot - Zbigniew Kumar Jr., DPM s Hammertoe Repair Second Digit Left Foot, Stabilization of First Ray Left Foot - Zbigniew Kumar Jr., DPM Date/Time: 09/22/24 06:32 Surgeon: Zbigniew Kumar Jr., DPM Pre Op Diagnosis: Bunion Lt Ft, 1st Ray Instability Lt Ft Patient Data Age: 64 Gender: M Height: 1.83 m Weight: 95.5 kg Allergies Allergy/AdvReac Type Severity Reaction Status Date / Time No Known Allergies Allergy Verified 09/20/24 12:58 Home Medications ?Medication ?Instructions ?Recorded ?Confirmed ?Type lisinopril 20 mg tablet 20 mg PO QAM 06/23/21 09/20/24 History vitamin E 268 mg (400 unit) capsule 268 mg PO DAILY 09/20/24 09/20/24 History Patient hx anesthesia problems: none Family hx anesthesia problems: none Results Review: All pre-operative results and documents have been reviewed as part of the pre-operative evaluation. [facility] Past Medical History Medical History HTN (hypertension) Overweight (BMI 25.0-29.9) Surgical History Surgical History (Updated 09/22/24 @ 06:34 by Jorge Gamboa MD) History of bunionectomy of right great toe H/O elbow surgery S/P lumbar fusion Social History Social History Smoking status: Never smoker Alcohol intake: current Drinks per week: 4 Substance use: never Substance use type: does not use Living arrangements: with family Additional living arrangements comments: Spiritual care concerns: No Anes - Eval Final PreProcedure Day of Procedure 09/22/24 06:32 Patient weight: overweight Heart: regular rate and rhythm Lungs: clear to auscultation Airway: Mallampati scale class II Neurological: alert and oriented Last oral intake: >/= 8 hours ASA classification: II Emergent: no Anesthetic plan: proceed Anesthesia type and monitoring: general LMA and standard monitoring Results Review: All pre-operative results and documents have been reviewed as part of the pre-operative evaluation. Informed Consent: The patient's anesthetic plan and its attendant risks and benefits were discussed with the patient/family/POA. Questions were solicited and answers provided to the satisfaction of the patient/family/POA.
--- NOTE | 2024-09-22 07:14 | WPDHPUPDATE1 ---
History and Physical Update Update Date/Time: 09/22/24 07:14 History and Physical has been reviewed, including an updated exam of the patient. There are NO changes in the patient's condition. Risks, benefits, and alternatives have been discussed and questions answered. Patient agrees to proceed with procedure.
[2024-09-22] MEDS: ceFAZolin 2 GM/D5W 50 ML 2 GM/50 ML BAG IVPB (07:29)
[2024-09-22] MEDS: LIDOCAINE 2% LOCAL INJ 20 ML VIAL 10 ML INFILTRATE (07:47)
--- NOTE | 2024-09-22 09:25 | W.PM.PROC2 ---
Procedure Note - Detailed Date of Procedure 09/22/24 Pre-op Diagnosis 1. Bunion left foot 2. Metatarsalgia left foot 3. Hammertoe 2nd left Post-op Diagnosis Same Procedure Performed 1. Arthrodesis of the 1st metatarsal phalangeal joint left foot 2. Sally Shortening second metatarsal osteotomy left foot 3. Hammertoe repair second digit left foot Surgeon Zbigniew Kumar Jr., DPM Anesthesia General and Local Indications Painful left forefoot bunion and hammertoe deformities Findings Degeneration of first metarsal head noted. Description of Procedure PROCEDURE IN DETAIL: Under mild sedation, the patient was brought into the operating room, placed on the operating table in supine position. A pneumatic ankle tourniquet was placed about the patient's ipsilateral ankle. Following general anesthesia and a Valdovinos Block the the first and second metatarsal bases was performed with 20ccs of 2% Lidocaine plain and 0.5% Marcaine plain, the foot was then scrubbed, prepped, and draped in the usual aseptic manner. An Esmarch bandage was then used to exsanguinate the patient's foot and the pneumatic ankle tourniquet was then inflated. Surgery began in the following manner: Attention was directed to the dorsal medial aspect of the 1st metatarsophalangeal joint left foot, where there was a large bunion noted. The incision was made starting along the central shaft of the 1st metatarsal and extending just proximal to the interphalangeal joint of the hallux. The incision was continued deep down through the subcutaneous tissues using sharp and blunt dissection. All bleeders were cauterized as necessary. At this point, the dissection was continued down to the level of the periosteum and capsular structures overlying the 1st metatarsophalangeal joint. A full length periosteum and capsular incision was made just medial to the extensor hallucis longus tendon. The periosteum and capsular structures were freed from the base of the proximal phalanx as well as the distal 1st metatarsal. At this point, the 1st metatarsophalangeal joint was identified. There was loss of articular cartilage to the head of the 1st metatarsal as well as the base of the proximal phalanx worse centrally and medially. There was significant broadening and hypertrophy of the 1st metatarsophalangeal joint. Utilizing a sagittal bone saw, the hypertrophied 1st metatarsal was resected dorsally, medially, and laterally. A power bur was used to make sure that there were no rough edges and also to further debride the hypertrophic 1st metatarsal. Next, a rongeur was used to resect the hypertrophic base of the proximal phalanx. At this point, the reamer system for the Maxforce plate system was used to denude the degenerative cartilage from the head of the 1st metatarsal as well as the base of the proximal phalanx. The cartilage and subchondral bone were fully debrided utilizing the reamer system until healthy bleeding bone was noted. Next, a 2-0 drill bit was used to further fenestrate the head of the 1st metatarsal as well as the base of the proximal phalanx in order to allow fusion across the 1st metatarsophalangeal joint. Next, a guide wire for a 3.5 headless Arthrex compression screw was driven from the medial aspect of the base of the proximal phalanx into the head of the 1st metatarsal in order to serve as temporary fixation, next the cannulated screw was driven and provided excellent compression. Next A large steel plate was used to make sure that the hallux was in a rectus position both in the sagittal plane as well as the frontal plane. Excellent position of the hallux was noted. Next, a Maxforce plate was placed atop the 1st metatarsophalangeal joint held in position with [place] wires. Utilizing standard principles and techniques, the distal drill holes were drilled and three 3.0 mm fully-threaded locking screws were driven from dorsal to plantar holding the distal aspect of the plate intact. At this point, the Maxforce compression system was utilized from dorsal distal to proximal plantar across the 1st metatarsophalangeal joint with excellent compression noted. Next, a 3.0mm locking screw was used to further compress the joint along the oblong dynamic compression screw slot. Next, the remaining 2 proximal drill holes were drilled from dorsal to plantar across and two 3.0 mm locking screws were driven from dorsal to plantar. The wound site was then flushed with copious amounts of sterile saline. Fluoroscopy was used to make sure that the plate was appropriately aligned and oriented and also to make sure that the screws were of appropriate length and orientation. Excellent position of the 1st metatarsophalangeal joint was visualized in all planes. Next, the periosteum and capsular structures were reapproximated with 3-0 Vicryl. Next, the subcutaneous structures were reapproximated with 4-0 Vicryl. Next, the skin was reapproximated and coapted utilizing 4-0 Monocryl in running subcuticular suture fashion technique. Next, attention was directed to the second digit of the left foot where a 5 cm incision was made from the distal interphalangeal joint extending to the 2nd metatarsal shaft.The dissection was continued to the dorsal aspect of the 2nd metatarsal head of the right foot where a 2 cm incision was made just medial to the extensor tendon to the 2nd digit. The incision was continued deep down through the subcutaneous tissues using sharp and blunt dissection. All bleeders were cauterized as necessary. A full-length periosteal incision was made overlying the 2nd metatarsal head distally. Next, a sagittal bone saw was used to make an osteotomy starting along the dorsal aspect of the articular surface to the head of the 2nd metatarsal in a parallel fashion to the shaft of the 2nd metatarsal. After this osteotomy was completed, the head of the 2nd metatarsal was noted to float into a more corrected proximal position. Next,two K wires for two 2.4mm Arthrex Cannulated Quickfix screws were driven from dorsal to plantar across the osteotomy site with excellent compression noted. Fluoroscopy was used to make certain that there was adequate shortening of the second metatarsal. Furthermore, a transverse tenotomy was created dorsal to the proximal interphalangeal joint of the second digit, next the head of the proximal phalanx was resected with an oscillating saw blade, next the Arthrex hammertoe planer was used to denude and prepare the joint for the hammertoe implant from the base of the middle phalanx and distal proximal phalanx. Next, I implanted the Medium Arthrex Dyanite hammertoe implant in a cannulated fashion using standard technique. Fluoroscopy was used to make sure that the digit and implant were appropriately positioned. The wound site was then flushed with copious amounts of sterile saline. Next, the periosteum and capsular structures overlying 2nd digit and 2nd metatarsophalangeal joint were reapproximated with 3-0 Vicryl. Next, subcutaneous structures were reapproximated and coapted utilizing 4-0 Vicryl. I reapproximated the extensor tendon overlying the 2nd digit proximal interphalangeal joint with 4-0 Vicryl. Next, the skin was reapproximated and coapted utilizing 4-0 Monocryl in running subcuticular suture fashion technique. Upon completion of the procedure, the incision was dressed with Steri-Strips, Adaptic, 4x4s, Kerlix, and Coban. The pneumatic ankle tourniquet was then deflated and a prompt hyperemic response was noted to all digits of the foot. A posterior splint was then applied to the affected lower extremity. It is important to note that Dr. Kumar was present throughout the procedure. The patient did very well with the procedure and the anesthesia. The patient was transferred to the recovery room with vital signs stable and vascular status intact to all toes of the foot. Following a period of postoperative monitoring, the patient will be discharged home on the following written and oral postoperative instructions: 1. Keep the dressing clean, dry, and intact. 2. The patient to be strictly nonweightbearing with a knee scooter or crutches. 3. The patient should ice and elevate the foot when at rest. 4. The patient should contact Dr. Kumar for all postop care and if any problems should arise. 5. Prescriptions were written for Percocet 5/325, dispensed 40 to be taken 1 p.o. q.4-6 hours as needed for severe pain. Furthermore, the patient should also take Xarelto 10 mg to be taken 1 p.o. daily starting 24 hours after surgery to prevent DVT for 14 days followed by one 325 mg aspirin until walking is re-initiated. Implants 1. Arthrex Maxforce plate with 3.0 Locking and non locking screws 1. Arthrex Medium Dynanite hammertoe implant 2. Two 2.4 Arthrex Cannulated Quickfix screws Estimated Blood Loss 1 Drains No Packing No Pathology None sent Complications No immediate complications Condition Stable Disposition Same day
[2024-09-22] MEDS: fentaNYL CITRATE INJ (*CRX) 100 MCG/2 ML VIAL 25 MCG IV PUSH ×8 (09:38→10:05)
[2024-09-22] MEDS: HYDROmorphone HCL INJ (*CRX) 1 MG/ML SYR 0.5 MG IV PUSH ×2 (10:10→10:16)
[2024-09-22] MEDS: oxyCODONE HCL (*CRX) 5 MG TAB IR PO (10:42)
== END 2024-09-22 11:53 | disposition home or self-care (01) ==
PROVIDERS: PCP Nurse Practitioner Family; Visit Provider Podiatrist Foot & Ankle Surgery
PROC: (CPT 28750; principal; 2024-09-22 07:30)
PROC: (CPT 28285; 2024-09-22 07:30)
DX: M21.612 Bunion of left foot (principal); M20.12 Hallux valgus (acquired), left foot; M19.072 Primary osteoarthritis, left ankle and foot; M77.42 Metatarsalgia, left foot; M20.42 Other hammer toe(s) (acquired), left foot; I10 Essential (primary) hypertension
CPT/HCPCS: 28285; 28308; 28750; 93005; 99199; A9270; C1713; C1769; J0690; J1100; J1171; J2003; J2250; J2405; J2704; J3010; J7120